=== PATIENT | female | born 1990 | race Caucasian/White ===

== ENCOUNTER 2018-02-17 11:52 | Emergency (ER) | payer OTHER ==
[2018-02-17 12:07] VITALS: BP 144/100; PULSE 80; TEMP 98.1; BMI 45.1
--- NOTE | 2018-02-17 12:19 | PDOC ---
Attending Attestation - Resident Resident Name: Alistair Hagan - ED Attending Attestation I have performed the following: I have examined & evaluated the patient, The case was reviewed & discussed with the resident, I agree w/resident's findings & plan, Exceptions are as noted - HPI HPI: 27 yo F presents with dental pain since yesterday. History of cracked tooth. No fever, no facial swelling. +L facial pain. - Physicial Exam PE: GENERAL: Awake, alert, and fully oriented, in no acute distress HEAD: No signs of trauma EYES: PERRLA, EOMI, sclera anicteric, conjunctiva clear ENT: Auricles normal inspection, hearing grossly normal, nares patent, oropharynx clear without exudates. Moist mucosa DENTAL: +Dental caries to #17 and 18. No gingival edema. NECK: Normal ROM, supple, no lymphadenopathy, JVD, or masses SKIN: Warm, Dry, normal turgor, no rashes or lesions noted. - Medical Decision Making Will do local infiltration of bupivacaine and refer to urgent care dental, to go straight from ED. Both teeth likely need to be extracted. No signs of abscess.
[2018-02-17] MEDS ORDERED: BUPIVACAINE HCL 0.25% 125 MG/50 ML VIAL INF ONE (12:22)
[2018-02-17] MEDS ORDERED: BUPIVACAINE 0.25% /EPI 1:200,000 10 ML VIAL INF ONE (12:25)
[2018-02-17] MEDS ORDERED: BUPIVACAINE HCL/PF 0.5% (5MG/ML) 10 ML VIAL ONE (12:37)
[2018-02-17] MEDS ORDERED: BUPIVACAINE HCL/PF 0.5% (5MG/ML) 10 ML VIAL IJ ONE (12:45)
--- NOTE | 2018-02-17 12:55 | PDOC ---
History of Present Illness - General History Source: Patient Exam Limitations: No Limitations - History of Present Illness Initial Comments: 02/17/18 12:51 Patient is a 27F here today complaining of a toothache located in her posterior left two molars that started yesterday night. Denies trauma, fevers, chills, vomiting. Endorses nausea associated with the pain. Has tried motrin for pain. Denies neck pain, chest pain, shortness of breath. <Alistair Hagan - Last Filed: 02/17/18 12:50> <Treasure Rodriguez - Last Filed: 02/17/18 13:45> - General Chief Complaint: Toothache Stated Complaint: TOOTHACHE Time Seen by Provider: 02/17/18 12:09 Past History - Past Medical History COPD: No Other medical history: MIGRAINE - Suicide/Smoking/Psychosocial Hx Smoking History: Never smoked Hx Alcohol Use: No Drug/Substance Use Hx: No Substance Use Type: None <Alistair Hagan - Last Filed: 02/17/18 12:50> <Treasure Rodriguez - Last Filed: 02/17/18 13:45> - Past Medical History Allergies/Adverse Reactions: Allergies Allergy/AdvReac Type Severity Reaction Status Date / Time No Known Allergies Allergy Verified 02/17/18 11:54 Home Medications: Ambulatory Orders Ibuprofen [Motrin -] 600 mg PO ONCE 02/17/18 Oxycodone HCl/Acetaminophen [Percocet 5-325 mg Tablet] 1 tab PO Q6H PRN #12 tablet MDD 4 tabs 02/17/18 Review of Systems - Review of Systems Comments:: 02/17/18 12:51 GENERAL/CONSTITUTIONAL: No fever or chills. No weakness. HEAD, EYES, EARS, NOSE AND THROAT: No change in vision. No sore throat. + toothache CARDIOVASCULAR: No chest pain or shortness of breath RESPIRATORY: No cough, wheezing, or hemoptysis. GASTROINTESTINAL: No nausea, vomiting, diarrhea or constipation. GENITOURINARY: No dysuria, frequency, or change in urination. MUSCULOSKELETAL: No joint or muscle swelling or pain. No neck or back pain. SKIN: No rash NEUROLOGIC: No headache, vertigo, loss of consciousness, or change in strength/ sensation. ENDOCRINE: No increased thirst. No abnormal weight change HEMATOLOGIC/LYMPHATIC: No anemia, easy bleeding, or history of blood clots. ALLERGIC/IMMUNOLOGIC: No hives or skin allergy. <BentleyAlistair - Last Filed: 02/17/18 12:50> *Physical Exam - Vital Signs Last Vital Signs Temp Pulse Resp BP Pulse Ox 98.1 F 80 16 144/100 100 02/17/18 11:53 02/17/18 11:53 02/17/18 11:53 02/17/18 11:53 02/17/18 11:53 - Physical Exam Comments: 02/17/18 12:52 GENERAL: Awake, alert, and fully oriented, in no acute distress DENTAL: Large defect in tooth 18, tender tooth 17/18. No floor involvement, no abscess HEAD: No signs of trauma, normocephalic, atraumatic EYES: PERRLA, EOMI, sclera anicteric, conjunctiva clear ENT: Auricles normal inspection, hearing grossly normal, nares patent, oropharynx clear without exudates. Moist mucosa NECK: Normal ROM, supple, no lymphadenopathy, JVD, or masses LUNGS: No distress, speaks full sentences, clear to auscultation bilaterally HEART: Regular rate and rhythm, normal S1 and S2, no murmurs, rubs or gallops, peripheral pulses normal and equal bilaterally. ABDOMEN: Soft, nontender, normoactive bowel sounds. No guarding, no rebound. No masses EXTREMITIES: Normal inspection, Normal range of motion, no edema. No clubbing or cyanosis. NEUROLOGICAL: Cranial nerves II through XII grossly intact. Normal speech, normal gait, no focal sensorimotor deficits SKIN: Warm, Dry, normal turgor, no rashes or lesions noted. <Alistair Hagan - Last Filed: 02/17/18 12:50> - Vital Signs Last Vital Signs Temp Pulse Resp BP Pulse Ox 98.1 F 80 16 144/100 100 02/17/18 11:53 02/17/18 11:53 02/17/18 11:53 02/17/18 11:53 02/17/18 11:53 <Treasure Rodriguez - Last Filed: 02/17/18 13:45> ED Treatment Course - Medications Given in the ED: ED Medications Discontinued Medications Generic Name Dose Route Start Last Admin Trade Name Freq PRN Reason Stop Dose Admin Bupivacaine HCl 0 mg 02/17/18 12:45 02/17/18 12:45 Marcaine 0.5% - IJ 02/17/18 12:46 25 mg ONCE ONE Administration <Treasure Rodriguez - Last Filed: 02/17/18 13:45> Medical Decision Making - Medical Decision Making 02/17/18 12:53 Patient is 27F with toothache. Large defect seen on exam. No suspicion of large infectino or stevenson's angina. Given a block with bupivicaine and instructed to follow up with dental urgent care clinic. <Alistair Hagan - Last Filed: 02/17/18 12:50> - Medical Decision Making 02/17/18 13:45 Pt returned to ED, as the dental urgent care does not accept her insurance. She states she will be able to see her own dentist tomorrow. I will give rx for percocet for breakthrough pain once the block wears off. <Treasure Rodriguez - Last Filed: 02/17/18 13:45> *DC/Admit/Observation/Transfer - Discharge Dispostion Decision to Admit order: No <Alistair Hagan - Last Filed: 02/17/18 12:50> <Treasure Rodriguez - Last Filed: 02/17/18 13:45> Diagnosis at time of Disposition: Pain due to dental caries - Discharge Dispostion Disposition: HOME Condition at time of disposition: Good - Prescriptions Prescriptions: Oxycodone HCl/Acetaminophen [Percocet 5-325 mg Tablet] 1 tab PO Q6H PRN #12 tablet MDD 4 tabs PRN Reason: Severe Pain - Patient Instructions Printed Discharge Instructions: DI for Tooth Decay, DI for Dental Pain Additional Instructions: Please follow up with an urgent care dental clinic. Please return if you have any new, worsening or concerning symptoms.
== END 2018-02-17 13:00 | disposition home or self-care (01) ==
LOC: FER 11:52
PROC: 3E033NZ Introduction of Analgesics, Hypnotics, Sedatives into Peripheral Vein, Percutaneous Approach (ICD-10-PCS; principal; 2018-02-17)
DX: K08.89 Other specified disorders of teeth and supporting structures (principal)
CPT/HCPCS: 99282-25

== ENCOUNTER 2020-03-06 19:12 | Emergency (ER) | payer OTHER ==
--- NOTE | 2020-03-06 19:26 | PDOC ---
History of Present Illness - General Chief Complaint: Pain, Acute Stated Complaint: ABDOMINAL PAIN Time Seen by Provider: 03/06/20 19:26 History Source: Patient Exam Limitations: No Limitations - History of Present Illness Initial Comments: 03/06/20 19:55 29F with PMH of gastric sleeve presents to the ED with epigastric pain radiating to the back. The pain started 30 min prior to arrival. She reports intermittent episodes of abdominal pain lasting 30-60min, usually occurs after eating. She states that the first episode occurred after the gastric sleeve surgery about 1.5 years ago. She reports associated nausea, vomiting, and diarrhea. Reports diffuse chest pain. Denies fever, SOB, dysuria, abnormal vaginal bleeding or discharge, or hematochezia. PMH: as in HPI SH: as in HPI Meds: none Allergies: NKDA Tob/Etoh/Rec drugs: negx3 PCP: Dr. Allyson OLIVAS GENERAL/CONSTITUTIONAL: No fever or chills. No weakness. HEENT: No change in vision. No ear pain or discharge. CARDIOVASCULAR: +chest pain. No shortness of breath RESPIRATORY: No cough, wheezing, or hemoptysis. GASTROINTESTINAL: +nausea, vomiting, diarrhea GENITOURINARY: No dysuria, frequency, or change in urination. MUSCULOSKELETAL: No joint or muscle swelling or pain. No neck or back pain. SKIN: No rash NEUROLOGIC: No headache, vertigo, loss of consciousness, or change in strength/sensation. ENDOCRINE: No increased thirst. No abnormal weight change HEMATOLOGIC/LYMPHATIC: No anemia, easy bleeding, or history of blood clots. ALLERGIC/IMMUNOLOGIC: No hives or skin allergy. PE GENERAL: Awake, alert, and fully oriented; moderate distress HEAD: No signs of trauma, normocephalic, atraumatic EYES: PERRLA, EOMI, sclera anicteric, conjunctiva clear ENT: Auricles normal inspection, hearing grossly normal, nares patent, oropharynx clear without exudates. Moist mucosa NECK: Normal ROM, supple, no LAD, JVD, or masses HEART: Regular rate and rhythm, normal S1 and S2, no murmurs, rubs or gallops, peripheral pulses normal and equal bilaterally. LUNGS: No respiratory distress, speaks full sentences, clear to auscultation bilaterally ABDOMEN: Soft, epigastric tenderness, normoactive bowel sounds. No guarding. No masses. +Ramires. -CVA tenderness. EXTREMITIES: Normal inspection, Normal range of motion, no edema. No clubbing or cyanosis. NEUROLOGICAL: CNII-XII grossly intact. Normal speech, normal gait, no focal sensorimotor deficits SKIN: Warm, Dry, normal turgor, no rashes. no jaundice. Assessment and Plan 1. Symptomatic cholelithiasis 2. Acute calculous cholecystitis 3. Pancreatitis 4. Gallstone pancreatitis 5. PUD 6. gastric sleeve complication Sebastien Wilson, PGY1 Emergency Medicine Past History - Medical History Allergies/Adverse Reactions: Allergies Allergy/AdvReac Type Severity Reaction Status Date / Time No Known Allergies Allergy Verified 02/17/18 11:54 Home Medications: Ambulatory Orders Ibuprofen [Motrin -] 600 mg PO ONCE 02/17/18 Oxycodone HCl/Acetaminophen [Percocet 5-325 mg Tablet] 1 tab PO Q6H PRN #12 ta blet MDD 4 tabs 02/17/18 COPD: No - Psycho-Social/Smoking History Smoking History: Never smoked ED Treatment Course - LABORATORY CBC & Chemistry Diagram: 03/06/20 20:55 03/06/20 20:55 - RADIOLOGY Radiology Studies Ordered: Abdomen and pelvis CT with IV and PO contrast Radiograph Interpretation: ABDOMINAL AND PELVIS CT WITH IV/PO CONTRAST FINDINGS: Trace bilateral pleural effusions slightly larger on the left side with overlying atelectasis There is a small hiatal hernia. Postsurgical changes of gastric sleeve surgery Area of focal fat infiltration in the left lobe of the liver along the fissure for the falciform ligament. 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 Contrast has not progressed to the colon. Tiny appendicolith within an otherwise normal appendix Shotty subcentimeter mesenteric lymph nodes in the mid abdomen and right lower quadrant, nonspecific, possibly reactive. Not pathologically enlarged by size criteria Small cyst in the left ovary measuring 1.7 cm. The pelvic organs are otherwise grossly normal No intra-abdominal free air, free fluid or loculated collections One or more of the following dose reduction techniques were used: automated exposure control, adjustment of the mA and/or kV according to patient size, use of iterative reconstructive technique. THIS DOCUMENT HAS BEEN ELECTRONICALLY SIGNED Carl Grijalva MD 03/07/2020 01:01 EST Medical Decision Making - Medical Decision Making 03/06/20 20:17 29F with PMH of gastric sleeve presents to the ED with epigastric pain radiating to the back. The pain started 30min prior to arrival. She reports intermittent episodes of abdominal pain lasting 30-60min, typically after eating. She states that the first episode occurred some time after the gastric sleeve surgery about 1.5 years ago. +nausea, vomiting, diarrhea. -ramires sign+ -CBC, CMP, lipase, UA, Upreg, abdomen/pelvis CT with PO and IV contrast -zofran + morphine + 1L LR -mild improvement to pain -> IM toradol -pepcid DDx: 1. Symptomatic cholelithiasis 2. Acute calculous cholecystitis 3. Pancreatitis 4. Gallstone pancreatitis 5. PUD Labs remarkable for: -leukocytosis @ 11.7 -CMP: mildly elevated AST, otherwise wnl -Lipase wnl -UA positive for 1200 bacteria --> no dysuria or other UTI sx, it's likey asymptomatic bacteruria and not a UTI -Upreg negative Abdominal CT: - small hiatal hernia 2/2 gastric sleeve, no evidence of hepatobiliary or pancreatic pathology -pts condition unlikely biliary disease, could be secondary to gastric sleeve, advised to follow up with the surgeon Dr. Contreras -Patient able to tolerate fluids via PO challenge Discharge - Discharge Information Problems reviewed: Yes Clinical Impression/Diagnosis: Abdominal pain Qualifiers: Abdominal location: right upper quadrant Qualified Code(s): R10.11 - Right upper quadrant pain Condition: Stable Disposition: HOME - Admission No - Follow up/Referral Referrals: Td Contreras MD [Non Staff, Medical] - - Patient Discharge Instructions Patient Printed Discharge Instructions: DI for Abdominal Pain-Adult, DI for Gastroesophageal Reflux Disease (GERD) Additional Instructions: You were seen in the ED for complaints of abdominal pain. In the ED you were evaluated with blood work, urinalysis, and abdominal CT scan. Your results were normal. There does not appear to be an acute need for immediate hospitalization. You are advised to follow up with your surgeon Dr. Contreras and your PMD Dr. Allyson Tariq within 1 week. Return to the ED immediately if you experience vomiting and inability to tolerate drinking fluids or vomiting blood. - Post Discharge Activity
[2020-03-06 19:40] VITALS: TEMP 98.6; BMI 27.1
[2020-03-06] MEDS ORDERED: ONDANSETRON 4 MG/2 ML VIAL IVPUSH ONE (19:45)
[2020-03-06] MEDS ORDERED: morphine CARPU-JECT 4 MG/1 ML DISP.SYRIN IVPUSH ONE ×2 (19:46→20:37)
[2020-03-06] MEDS ORDERED: LACTATED RINGERS SOLUTION 1000 ML INFUS.BAG IV ONE (19:47)
[2020-03-06] MEDS ORDERED: morphine SULFATE 4 MG/ML VIAL ONE (20:39)
--- NOTE | 2020-03-06 21:11 | PDOC ---
Documentation entered by Ina Leiva SCRIBE, acting as scribe for Megan Hernandez MD. Megan Hernandez MD: This documentation has been prepared by the Abbie richard Sydney, SCRIBE, under my direction and personally reviewed by me in its entirety. I confirm that the documentation accurately reflects all work, treatment, procedures, and medical decision making performed by me. Attending Attestation - Resident Resident Name: Sebastien Wilson - ED Attending Attestation I have performed the following: I have examined & evaluated the patient, The case was reviewed & discussed with the resident, I agree w/resident's findings & plan, Exceptions are as noted - HPI HPI: 03/06/20 20:25 Patient is a 29 year old female with a significant past medical history of covid-19 (positive in October), gastric sleeve who presents to the ED with epigastric pain around 6:30pm tonight. As per patient, her pain radiates to her back and is similar to her usual intermittent episodes of epigastric pain which usually last 30-60 minutes in duration and occur after eating. Patient reports her first episode occurred after her gastric sleeve surgery roughly 1.5 years ago. She endorses associated nausea, vomiting and diarrhea. Denies headache, fever, chills, shortness of breath, chest pain, or urinary changes. Allergies: NKDA - Physicial Exam PE: 03/06/20 21:08 General: uncomfortable appearing HEENT: NCAT Neck: supple, FROM Abdomen: soft, nt, no rebound, no guarding, no appreciable masses - Medical Decision Making 03/06/20 21:09 29 yo F with epigastric abd pain, abdomen non-tender but patietn uncomfortable appearing on exam, possible gastritis vs. pancreatitis vs. lower suspicion for biliary disease or obstruction however given report of h/o gastric sleeve will get CT a/p. Plan: -labs -urine -pain control as needed -zofran -CT a/p -reassess This clinical encounter is taking place during a federal and state health care emergency attributable to the novel Samuel Virus pandemic. The [employer] of the Department of Health and Human Services has declared, pursuant to the Public Health Service Act 319F-3 (42 U.S[place]C. 247d-6d), that a covered persons activities related to medical countermeasures against COVID-19 will be immune from liability under Federal and State law. 03/07/20 03:45 CT without concerning findings. Patient with improvement in pain. Will d/c with return precautions, recommend PMD f/u and patient return to f/u with her bariatric surgeon as symptoms have been ongoing since her surgery. Discharge - Discharge Information Problems reviewed: Yes Clinical Impression/Diagnosis: Abdominal pain Qualifiers: Abdominal location: right upper quadrant Qualified Code(s): R10.11 - Right upper quadrant pain Condition: Stable Disposition: HOME - Follow up/Referral Referrals: Td Contreras MD [Non Staff, Medical] - - Patient Discharge Instructions Patient Printed Discharge Instructions: DI for Gastroesophageal Reflux Disease (GERD), DI for Abdominal Pain-Adult Additional Instructions: You were seen in the ED for complaints of abdominal pain. In the ED you were evaluated with blood work, urinalysis, and abdominal CT scan. Your results were normal. There does not appear to be an acute need for immediate hospitalization. You are advised to follow up with your surgeon Dr. Contreras and your PMD Dr. Allyson Tariq within 1 week. Return to the ED immediately if you experience vomiting and inability to tolerate drinking fluids or vomiting blood. - Post Discharge Activity
[2020-03-06 21:27] LABS: BASO % 0.4 % (0-2.0); EOS % 0.7 % (0-4.5); HEMATOCRIT 37.8 % (32.4-45.2); HEMOGLOBIN 12.3 GM/dL (10.7-15.3); LYMPH % 19.6 % (8-40); MCH 26.7 pg (25.7-33.7); MCHC 32.5 g/dl (32.0-36.0); MEAN PLT VOLUME 8.8 fl (7.5-11.1); MONO % 7.3 % (3.8-10.2); PLATELET COUNT 362 K/MM3 (134-434); RBC 4.61 M/mm3 (3.60-5.2); RDW 15.7 % (11.6-15.6); WHITE BLOOD COUNT 11.7 K/mm3 (4.0-10.0)
[2020-03-06 21:44] LABS: BILIRUBIN,TOTAL 0.3 mg/dL (0.2-1); BLOOD UREA NITROGEN 13.4 mg/dL (7-18); CALCIUM 8.5 mg/dL (8.5-10.1); CREATININE 0.6 mg/dL (0.55-1.3); POTASSIUM 3.3 mmol/L (3.5-5.1); TOT PROT 6.8 g/dl (6.4-8.2)
[2020-03-06] MEDS ORDERED: KETOROLAC TROMETHAMINE 60 MG/2 ML VIAL IM ONE (22:02)
[2020-03-06] MEDS ORDERED: KETOROLAC TROMETHAMINE 60 MG/2 ML VIAL IVPUSH ONE (22:08)
[2020-03-06] MEDS ORDERED: KETOROLAC TROMETHAMINE 30 MG/1 ML VIAL ONE (22:09)
[2020-03-06 23:16] LABS: HCG,QUALITATIVE URINE Negative
[2020-03-06 23:26] LABS: URINE APPEARANCE CLEAR; URINE BILIRUBIN NEGATIVE (NEGATIVE); URINE COLOR DK YELLOW; URINE GLUCOSE (UA) NEGATIVE (NEGATIVE); URINE KETONE TRACE (NEGATIVE); URINE LEUK ESTERASE NEGATIVE (NEGATIVE); URINE NITRITE NEGATIVE (NEGATIVE); URINE PROTEIN TRACE (NEGATIVE)
[2020-03-06 23:38] LABS: EPI CELLS 28 /uL (0-25.1); HYALINE CASTS 3 /uL (0-3.1); URINE BACTERIA 1209 /uL (0-1359); URINE RBC 17 /uL (0-23.9); URINE WBC 15 /uL (0-25.8)
[2020-03-07] MEDS ORDERED: ACETAMINOPHEN 500 MG TABLET (FP) PO ONE (01:18)
[2020-03-07] MEDS ORDERED: FAMOTIDINE 20 MG TABLET PO ONE (01:28)
[2020-03-07 02:06] VITALS: BP 108/78; PULSE 78
== END 2020-03-07 02:06 | disposition home or self-care (01) ==
LOC: JER 19:12
PROC: 3E033NZ Introduction of Analgesics, Hypnotics, Sedatives into Peripheral Vein, Percutaneous Approach (ICD-10-PCS; principal; 2020-03-06)
PROC: 3E033GC Introduction of Other Therapeutic Substance into Peripheral Vein, Percutaneous Approach (ICD-10-PCS; 2020-03-06)
PROC: 3E0233Z Introduction of Anti-inflammatory into Muscle, Percutaneous Approach (ICD-10-PCS; 2020-03-06)
DX: R10.11 Right upper quadrant pain (principal)
CPT/HCPCS: 36415; 74177-TC; 80053; 81003; 83690; 84703; 85025; 87086; 96372; 96374; 96375; 96376; 99285-25; Q9967

== ENCOUNTER 2020-03-15 05:13 | Inpatient (IN) | payer OTHER ==
[2020-03-15] MEDS ORDERED: FAMOTIDINE 20 MG/50 ML IVPB 20 MG/50 ML MG IVPB ONE ×2 (05:56→06:11)
[2020-03-15] MEDS ORDERED: LACTATED RINGERS SOLUTION 1,000 ML IV STA (05:56)
[2020-03-15] MEDS ORDERED: ONDANSETRON 4 MG/2 ML VIAL IVPUSH ONE ×2 (05:56→20:40)
[2020-03-15] MEDS ORDERED: ACETAMINOPHEN 1000 MG/100 ML VIAL (NON FORMULARY) IVPB ONE (05:56)
[2020-03-15] MEDS ORDERED: ACETAMINOPHEN INJECTION 100 ML IVPB ONE (06:11)
--- NOTE | 2020-03-15 06:15 | PDOC ---
Rapid Medical Evaluation Chief Complaint: Pain Time Seen by Provider: 03/15/20 06:15 Medical Evaluation: Shraddha is a 29 yo F w a hx of a gastric sleeve who presents with epigastric burning abdominal pain which radiates directly to her back. Pain woke her up from sleep at 2:30 am. She tried taking tylenol with minimal relief last night. Does not remember what she ate last night for dinner. Surgeon: Td Contreras LMP: 1 month prior Vital Signs Temp Pulse Resp BP Pulse Ox 98.6 F 62 18 123/76 99 03/15/20 05:44 03/15/20 05:44 03/15/20 05:44 03/15/20 05:44 03/15/20 05:44 PE: Gen: Patient looks uncomfortable, feels warm. Sick but not toxic. Abd: Epigastric abdominal pain. Soft abdomen. Not peritoneal, no rigidity, no rebound or guarding. Plan: Labs, urine, EKG, GI cocktail, analgesia, anti-emetic, IV hydration, day team re-assess - day team to assess for whether she needs a CTAP to r/o pancreatitis or a RUQ US to r/o constance - 20 gauge IV placed in right AC in case need for CTAP w/ contrast EKG: Sinus bradycardia rate of 55, pr 122, narrow complexes, qrs 80, normal axis, no hypertrophy, no ST elevations or depressions, normal T waves, no Q waves, QTc 403 Discharge Disposition - Diagnosis Abdominal pain Qualifiers: Abdominal location: epigastric Qualified Code(s): R10.13 - Epigastric pain - Discharge Dispostion Condition at time of disposition: Stable - Referrals Referrals: Nishant Chow MD [Primary Care Provider] - - Patient Instructions - Post Discharge Activity
[2020-03-15 07:00] LABS: ALBUMIN 2.8 g/dl (3.4-5.0); ALK PHOS 97 U/L (45-117); ANION GAP 5 MMOL/L (8-16); BLOOD UREA NITROGEN 14.4 mg/dL (7-18); CALCIUM 7.6 mg/dL (8.5-10.1); CHLORIDE 108 mmol/L (98-107); CO2 29 mmol/L (21-32); CREATININE 0.6 mg/dL (0.55-1.3); GLUCOSE,RANDOM 90 mg/dL (74-106); LIPASE 197 U/L (73-393); MAGNESIUM 2.2 mg/dL (1.8-2.4); PHOSPHOROUS 3.4 mg/dL (2.5-4.9); POTASSIUM 3.5 mmol/L (3.5-5.1); SGOT/AST 750 U/L (15-37); SGPT/ALT 297 U/L (13-61); SODIUM 142 mmol/L (136-145)
[2020-03-15 07:03] LABS: BASO % 0.5 % (0-2.0); EOS % 1.3 % (0-4.5); HEMATOCRIT 33.4 % (32.4-45.2); HEMOGLOBIN 10.9 GM/dL (10.7-15.3); LYMPH % 29.7 % (8-40); MCH 26.8 pg (25.7-33.7); MCHC 32.5 g/dl (32.0-36.0); MEAN CELL VOLUME 82.5 fl (80-96); MEAN PLT VOLUME 8.8 fl (7.5-11.1); MONO % 10.5 % (3.8-10.2); PLATELET COUNT 266 K/MM3 (134-434); RBC 4.05 M/mm3 (3.60-5.2); RDW 16.9 % (11.6-15.6); WHITE BLOOD COUNT 6.4 K/mm3 (4.0-10.0)
[2020-03-15 07:06] LABS: INR 0.97 (0.83-1.09); PROTHROMBIN TIME (PATIENT) 11.4 SEC (9.7-13.0)
[2020-03-15 07:08] LABS: ACTIVATED PTT 29.1 SECONDS (25.2-36.5)
--- NOTE | 2020-03-15 07:29 | PDOC ---
History of Present Illness - General Chief Complaint: Pain Stated Complaint: ABDOMINAL PAIN Time Seen by Provider: 03/15/20 06:15 - History of Present Illness Initial Comments: 03/15/20 07:29 HPI 29 y/o F hx of gastric sleeve (1yr ago) presents to the ED with epigastric pain which began this morning around 2 a.m. Pain woke her up from sleep. Pain is in the epigastrium and radiates to her back. She endoreses nausea but denies any vomiting, diarrrhea, dysuria, hematuria,bloody stools. PMHx: as noted above ROS: as noted Allergies: NKDA ROS: GENERAL/CONSTITUTIONAL: No fever or chills. No weakness. HEAD, EYES, EARS, NOSE AND THROAT: No change in vision. No ear pain or discharge. No sore throat. CARDIOVASCULAR: No chest pain or shortness of breath RESPIRATORY: No cough, wheezing, or hemoptysis. GASTROINTESTINAL: No nausea, vomiting, diarrhea or constipation. GENITOURINARY: No dysuria, frequency, or change in urination. MUSCULOSKELETAL: No joint or muscle swelling or pain. No neck or back pain. SKIN: No rash NEUROLOGIC: No headache, vertigo, loss of consciousness, or change in strength/sensation. ENDOCRINE: No increased thirst. No abnormal weight change HEMATOLOGIC/LYMPHATIC: No anemia, easy bleeding, or history of blood clots. ALLERGIC/IMMUNOLOGIC: No hives or skin allergy. PE: GENERAL: Awake, alert, and fully oriented, in no acute distress HEAD: No signs of trauma, normocephalic, atraumatic EYES: PERRLA, EOMI, sclera anicteric, conjunctiva clear ENT: Auricles normal inspection, hearing grossly normal, nares patent, oropharynx clear without exudates. Moist mucosa NECK: Normal ROM, supple, no lymphadenopathy, JVD, or masses LUNGS: No distress, speaks full sentences, clear to auscultation bilaterally HEART: Regular rate and rhythm, normal S1 and S2, no murmurs, rubs or gallops, peripheral pulses normal and equal bilaterally. ABDOMEN: Soft, ttp (ruq + epigastric), No guarding, no rebound. No masses EXTREMITIES : Normal inspection, Normal range of motion, no edema. No clubbing or cyanosis NEUROLOGICAL: Cranial nerves II through XII grossly intact. Normal speech, normal gait, no focal sensorimotor deficits SKIN: Warm, Dry, normal turgor, no rashes or lesions noted MDM DDx including but not limited to: cholecystitis, cholelithiasis, pancreatitis, acs Workup: Labs, urine, EKG, GI cocktail, analgesia, anti-emetic, IV hydration, TX: Scores - HEART score - EKG: EKG: Sinus bradycardia rate of 55, pr 122, narrow complexes, qrs 80, normal axis, no hypertrophy, no ST elevations or depressions, normal T waves, no Q waves, QTc 403 ED course labs remarkable for elevated LFT's, lipase unremarkable will obtain RUQ u/s ultrasound Impression fatty infiltration of the liver cholelithiasis small amount of pericholecystic fluid this could represent early sign of acute cholecystitis ct abdomen and pelvis -new abnormal findings of the gallbladder suggestive of acute cholecystitis myomatous uterous, more apparent than noted on prior study meds: Dr. Foley consulted: admit, IV fluids, abx,npo Reassesment: pain poorly controlled with tylenol, given IV morphien Past History - Medical History Allergies/Adverse Reactions: Allergies Allergy/AdvReac Type Severity Reaction Status Date / Time No Known Allergies Allergy Verified 03/15/20 05:47 Home Medications: Ambulatory Orders NK [No Known Home Medication] 03/15/20 COPD: No - Reproductive History Is Patient Now?: No - Psycho-Social/Smoking History Smoking History: Never smoked Information on smoking cessation initiated: No - Substance Abuse Hx (Audit-C & DAST Scrn) How often the patient has a drink containing alcohol: Never Score: In Men: 4 or > Positive; In Women: 3 or > Positive: 0 Screen Result (Pos requires Nsg. Audit-10AR): Negative In the last yr the pt used illegal drug/Rx for NonMed reason: No Score: Yes response is considered Positive: 0 Screen Result (Positive result requires Nsg. DAST-10): Negative *Physical Exam - Vital Signs Last Vital Signs Temp Pulse Resp BP Pulse Ox 98.6 F 62 18 123/76 99 03/15/20 05:44 03/15/20 05:44 03/15/20 05:44 03/15/20 05:44 03/15/20 05:44 ED Treatment Course - LABORATORY CBC & Chemistry Diagram: 03/15/20 05:56 03/15/20 06:10 - ADDITIONAL ORDERS Additional order review: Laboratory Results 03/15/20 03/15/20 03/15/20 06:10 06:10 06:10 PT with INR 11.40 INR 0.97 PTT (Actin FS) 29.1 Sodium 142 Potassium 3.5 Chloride 108 H Carbon Dioxide 29 Anion Gap 5 L BUN 14.4 Creatinine 0.6 Est GFR (CKD-EPI)AfAm 141.76 Est GFR (CKD-EPI)NonAf 122.31 Random Glucose 90 Lactic Acid 1.3 Calcium 7.6 L Phosphorus 3.4 Magnesium 2.2 Total Bilirubin 1.0 AST 750 H ALT 297 H Alkaline Phosphatase 97 Creatine Kinase 64 Troponin I < 0.02 Total Protein 6.0 L Albumin 2.8 L Lipase 197 Serum , Qual 03/15/20 06:10 PT with INR INR PTT (Actin FS) Sodium Potassium Chloride Carbon Dioxide Anion Gap BUN Creatinine Est GFR (CKD-EPI)AfAm Est GFR (CKD-EPI)NonAf Random Glucose Lactic Acid Calcium Phosphorus Magnesium Total Bilirubin AST ALT Alkaline Phosphatase Creatine Kinase Troponin I Total Protein Albumin Lipase Serum , Qual Negative 03/15/20 05:56 RBC 4.05 MCV 82.5 MCHC 32.5 RDW 16.9 H MPV 8.8 Neutrophils % 58.0 Lymphocytes % 29.7 D Monocytes % 10.5 H Eosinophils % 1.3 D Basophils % 0.5 - RADIOLOGY Radiology Studies Ordered: Category Date Time Status ABDOMEN US -LIMITED [US] Stat Ultrasound 03/15/20 07:14 Ordered - Medications Given in the ED: ED Medications Discontinued Medications Generic Name Dose Route Start Last Admin Trade Name Tru PRN Reason Stop Dose Admin Acetaminophen 1,000 mg 03/15/20 05:56 03/15/20 06:19 Ofirmev Injection - IVPB 03/15/20 05:57 1,000 mg ONCE ONE Administration Famotidine/Sodium Chloride 20 mg in 50 mls @ 100 mls/hr 03/15/20 05:56 06:19 Pepcid 20 Mg Premixed Ivpb - IVPB 03/15/20 06:25 100 mls/hr ONCE ONE Administration Lactated Ringer's 1,000 mls @ 1,000 mls/hr 03/15/20 05:56 03/15/20 06:19 Lactated Ringers Solution IV 03/15/20 06:55 1,000 mls/hr ONCE STA Administration Ondansetron HCl 4 mg 03/15/20 05:56 03/15/20 06:19 Zofran Injection IVPUSH 03/15/20 05:57 4 mg ONCE ONE Administration Discharge - Discharge Information Clinical Impression/Diagnosis: Cholecystitis Abdominal pain Qualifiers: Abdominal location: epigastric Qualified Code(s): R10.13 - Epigastric pain Condition: Stable - Follow up/Referral - Patient Discharge Instructions - Post Discharge Activity
[2020-03-15] MEDS ORDERED: SODIUM CHLORIDE 0.9% 500 ML INFUS.BAG IV ONE (08:35)
[2020-03-15] MEDS ORDERED: CEFTRIAXONE 1,000 MG in DEXTROSE 5%-WATER - 50 ML IVPB ONE (08:35)
[2020-03-15] MEDS ORDERED: morphine CARPU-JECT 4 MG/1 ML DISP.SYRIN IVPUSH ONE (09:05)
[2020-03-15] MEDS ORDERED: morphine SULFATE 4 MG/ML VIAL ONE (09:48)
[2020-03-15] MEDS ORDERED: CEFTRIAXONE 1 GM/50 ML BAG ONE (09:48)
--- NOTE | 2020-03-15 10:38 | PDOC ---
Documentation entered by Tong Andrade SCRIBE, acting as scribe for Imani Briggs MD. Imani Briggs MD: This documentation has been prepared by the zhenge, Tong Andrade SCRIBE, under my direction and personally reviewed by me in its entirety. I confirm that the documentation accurately reflects all work, treatment, procedures, and medical decision making performed by me. Attending Attestation - Resident Resident Name: ClarimarioTomyCharbel - ED Attending Attestation I have performed the following: I have examined & evaluated the patient, The case was reviewed & discussed with the resident, I agree w/resident's findings & plan, Exceptions are as noted - HPI HPI: 03/15/20 09:41 The patient is a 29 year old female with a significant past medical history of gastric bypass Surgery ([facility], 1 year ago; lost 150 pounds) who presents to the emergency department for evaluation of epigastric pain radiating to the back that began 7 hours ago when she was woken up by her pain. The patient described her pain as sharp and severe associated with nausea and chills. She reports a history of diarrhea two weeks ago that has resolved, and intermittent upper abdominal pain with eating for the past few months. The patient denies chest/back pain, cough, and shortness of breath. Denies fever, vomiting. Denies any symptoms. Denies any other symptoms. Allergies: NKDA Social Hx: None reported Surgical Hx: gastric bypass (1 year ago) PCP: Dr. Chow 03/15/20 10:20 - Physicial Exam PE: 03/15/20 10:22 Awake alert no acute distress lungs are clear bilaterally heart is regular murmurs rubs or gallops abdomen is soft there is epigastric and right upper quadrant tenderness no rebound no guarding no CVA tenderness no lower abdominal tenderness. Extremities are warm and perfused skin is warm and dry no edema lower extremities patient is awake alert oriented x3 - Medical Decision Making 03/15/20 10:36 Of gastric sleeve 1 year ago aspect if worse sick last a.m. around 3 chills. On exam epigastric region. Differential included complication secondary to pain versus cholecystitis cholelithiasis pancreatitis. Basic labs were ordered as well as an ultrasound echocardiogram the abdomen pelvis evaluate gastric sleeve. Ultrasound shows multiple gallstones with concerning for cholecystitis Dr. Foley surgery ceftriaxone and Flagyl will be admitted discussed with Dr. Crowell to admit the patient been made n.p.o. for her surgery Discharge - Discharge Information Problems reviewed: Yes Clinical Impression/Diagnosis: Cholecystitis Abdominal pain Qualifiers: Abdominal location: epigastric Qualified Code(s): R10.13 - Epigastric pain Condition: Stable - Admission Yes - Follow up/Referral Referrals: Nishant Chow MD [Primary Care Provider] - - Patient Discharge Instructions - Post Discharge Activity
--- NOTE | 2020-03-15 11:03 | HP ---
Admitting History and Physical - Admission History of Present Illness: 29 y/o F hx of gastric sleeve (1yr ago) presents to the ED with epigastric pain which began this morning around 2 a.m. Pain woke her up from sleep. Pain is in the epigastrium and radiates to her back. She endoreses nausea but denies any vomiting, diarrrhea, dysuria, hematuria,bloody stools. - Past Medical History ...LMP: 03/15/20 ...: No - Smoking History Smoking history: Never smoked - Alcohol/Substance Use Hx Alcohol Use: No Home Medications - Allergies Allergies/Adverse Reactions: Allergies Allergy/AdvReac Type Severity Reaction Status Date / Time No Known Allergies Allergy Verified 03/15/20 05:47 - Home Medications Home Medications: Ambulatory Orders NK [No Known Home Medication] 03/15/20 Physical Examination Vital Signs: Vital Signs Temperature 98.6 F 03/15/20 05:44 Pulse Rate 72 03/15/20 10:47 Respiratory Rate 18 03/15/20 10:47 Blood Pressure 105/72 03/15/20 10:47 O2 Sat by Pulse Oximetry (%) 99 03/15/20 10:47 Labs: CBC, BMP 03/15/20 05:56 03/15/20 06:10 Problem List - Problems (1) Abdominal pain Assessment/Plan: ultrasound Impression fatty infiltration of the liver cholelithiasis small amount of pericholecystic fluid this could represent early sign of acute cholecystitis ct abdomen and pelvis -new abnormal findings of the gallbladder suggestive of acute cholecystitis myomatous uterous, more apparent than noted on prior study Surgical consult npo ivf iv abx Code(s): R10.9 - UNSPECIFIED ABDOMINAL PAIN Qualifiers: Abdominal location: epigastric Qualified Code(s): R10.13 - Epigastric pain (2) Cholecystitis Assessment/Plan: as above Code(s): K81.9 - CHOLECYSTITIS, UNSPECIFIED (3) History of sleeve gastrectomy Code(s): Z90.3 - ACQUIRED ABSENCE OF STOMACH [PART OF] (4) Transaminitis Assessment/Plan: follow trends gi consult Code(s): R74.0 - NONSPEC ELEV OF LEVELS OF TRANSAMNS & LACTIC ACID DEHYDRGNSE
--- NOTE | 2020-03-15 15:32 | CONSULT ---
- Consultation REQUESTING PROVIDER: Charbel Fall MD CONSULT REQUEST: We have been asked to surgically evaluate this patient for symptomatic gallbladder disease. Hospitalist:Gamaliel Torres HISTORY OF PRESENT ILLNESS: KAILEY who is a is a 29 y/o female who prese nts with epigastric burning abdominal pain which radiates directly to her back. Pain woke her up from sleep at 2:30 am. Does not remember what she ate last night for dinner. She may have had this before; she was txed and released from the ED 03/06/20-03/07/2020 after a minimal w/u and she was told she had GERD; she is unaware if she had gallstones at the time she was being evaluated for the gastric sleeve. She has no other F GI//[employer] c/o; she has lost over 100 lbs. to date. PMHx: none PSHx: lap sleeve gastrectomy 12/[address] [facility] [address] Td Contreras Home Medications Medication Instructions Recorded NK [No Known Home Medication] 03/15/20 Allergies Allergy/AdvReac Type Severity Reaction Status Date / Time No Known Allergies Allergy Verified 03/15/20 05:47 REVIEW OF SYSTEMS: CONSTITUTIONAL: Absent: fever, chills, diaphoresis, generalized weakness, malaise, loss of appetite, weight change CARDIOVASCULAR: Absent: chest pain, syncope, palpitations, irregular heart rate, lightheadedness, peripheral edema RESPIRATORY: Absent: cough, shortness of breath, dyspnea with exertion, wheezing, stridor, hemoptysis GASTROINTESTINAL: Present: abdominal pain, abdominal distension, nausea, vomiting, Absent: diarrhea, constipation, melena, hematochezia GENITOURINARY: Absent: dysuria, frequency, urgency, hesitancy, hematuria, flank pain, genital pain MUSCULOSKELETAL: Absent: myalgia, arthralgia, joint swelling, back pain, neck pain SKIN: Absent: rash, itching, pallor HEMATOLOGIC/IMMUNOLOGIC: Absent: easy bleeding, easy bruising, lymphadenopathy NEUROLOGIC: Absent: headache, focal weakness, paresthesias, dizziness, unsteady gait, seizure, mental status changes, bladder or bowel incontinence PSYCHIATRIC: Absent: anxiety, depression, suicidal or homicidal ideation, hallucinations. PHYSICAL EXAM: GENERAL: Awake, alert, and fully oriented, in no acute distress. HEAD: Normal with no signs of trauma. EYES: sclera anicteric, conjunctiva clear. NECK: Normal ROM, supple without lymphadenopathy, JVD, or masses. LUNGS: Clear to auscultation bilat anteriorly. No wheezes, and no crackles. No accessory muscle use. HEART: Regular rate and rhythm. No murmurs ABDOMEN: Soft, tender RUQ, not distended, normoactive bowel sounds, no guarding, no rebound, no masses. No organomegaly. No hernias; marked laxity of the skin of the abdominal wall. MUSCULOSKELETAL: Normal ROM at all joints. No bony deformities or tenderness. No CVA tenderness. UPPER EXTREMITIES: 2+ pulses, warm, well-perfused. No cyanosis. Cap refill <2 seconds. No peripheral edema. LOWER EXTREMITIES: 2+ pulses, warm, well-perfused. No calf tenderness. No peripheral edema. NEUROLOGICAL: Normal speech, gait not observed. PSYCH: Cooperative. Good eye contact. Appropriate mood and affect. SKIN: Warm, dry, normal turgor, no rashes or lesions noted. Vital Signs Temperature 98.6 F 03/15/20 05:44 Pulse Rate 72 03/15/20 10:47 Respiratory Rate 18 03/15/20 10:47 Blood Pressure 105/72 03/15/20 10:47 O2 Sat by Pulse Oximetry (%) 99 03/15/20 10:47 Lab Results WBC 6.4 K/mm3 (4.0-10.0) 03/15/20 05:56 RBC 4.05 M/mm3 (3.60-5.2) 03/15/20 05:56 Hgb 10.9 GM/dL (10.7-15.3) 03/15/20 05:56 Hct 33.4 % (32.4-45.2) 03/15/20 05:56 MCV 82.5 fl (80-96) 03/15/20 05:56 MCHC 32.5 g/dl (32.0-36.0) 03/15/20 05:56 RDW 16.9 % (11.6-15.6) H 03/15/20 05:56 Plt Count 266 K/MM3 (134-434) D 03/15/20 05:56 INR 0.97 (0.83-1.09) 03/15/20 06:10 Sodium 142 mmol/L (136-145) 03/15/20 06:10 Potassium 3.5 mmol/L (3.5-5.1) 03/15/20 06:10 Chloride 108 mmol/L (98-107) H 03/15/20 06:10 Carbon Dioxide 29 mmol/L (21-32) 03/15/20 06:10 Anion Gap 5 MMOL/L (8-16) L 03/15/20 06:10 BUN 14.4 mg/dL (7-18) 03/15/20 06:10 Creatinine 0.6 mg/dL (0.55-1.3) 03/15/20 06:10 Random Glucose 90 mg/dL (74-106) 03/15/20 06:10 Calcium 7.6 mg/dL (8.5-10.1) L 03/15/20 06:10 Blood Type A POSITIVE 03/15/20 06:10 Antibody Screen Negative 03/15/20 06:10 Imaging w/u to date reviewed IMP: biliary colic/possible acute cholecystitis/cholelithiasis PLAN: NPO/IVF/IVABS; trend LFT's/suggest lap constance possible open on this admission pending ongoing w/u; a/a/u by the patient h/e she may not be amenable to surgery; will f/u. Dillon Foley MD FAC S
[2020-03-15 17:28] LABS: URINE APPEARANCE CLOUDY; URINE COLOR DK YELLOW
[2020-03-15 17:29] LABS: PH,URINE 8.5 (5.0-8.0); URINE BILIRUBIN NEGATIVE (NEGATIVE); URINE GLUCOSE (UA) NEGATIVE (NEGATIVE); URINE KETONE NEGATIVE (NEGATIVE); URINE LEUK ESTERASE NEGATIVE (NEGATIVE); URINE NITRITE NEGATIVE (NEGATIVE); URINE PROTEIN TRACE (NEGATIVE)
[2020-03-15 17:30] LABS: EPI CELLS 216.4 /uL (0-25.1); URINE WBC 44.8 /uL (0-25.8)
[2020-03-15 17:31] LABS: HYALINE CASTS 16.76 /uL (0-3.1); URINE BACTERIA 667.17 /uL (0-1359)
[2020-03-15] MEDS ORDERED: MORPHINE SULFATE 2 MG/ML VIAL IVPUSH ONE (20:40)
[2020-03-15] MEDS ORDERED: MORPHINE SULFATE 2 MG/ML VIAL ONE (20:53)
--- NOTE | 2020-03-15 21:21 | EKG ---
Test Reason : Blood Pressure : / mmHG Vent. Rate : 055 BPM Atrial Rate : 055 BPM P-R Int : 122 ms QRS Dur : 080 ms QT Int : 422 ms P-R-T Axes : 081 083 062 degrees QTc Int : 403 ms SINUS BRADYCARDIA OTHERWISE NORMAL ECG NO PREVIOUS ECGS AVAILABLE Confirmed by VALERIE CASTRO MD ([id number]) on 03/15/2020 9:21:24 PM Referred By: Confirmed By:VALERIE CASTRO MD
[2020-03-16] MEDS: D5-1/2NS+20 MEQ KCL - 20 MEQ/1,000 ML INFUS.BAG IV SCH ×2 (08:18→19:09)
[2020-03-16] MEDS ORDERED: CEFTRIAXONE 2 GM/100 ML BAG IVPB ONE (08:25)
[2020-03-16] MEDS: CEFTRIAXONE 2 GM/100 ML BAG IVPB SCH (09:26)
--- NOTE | 2020-03-16 09:43 | PN ---
Progress Note, Physician Chief Complaint: Cholecyctitis Abdominal pain History of Present Illness: 29 year old, came in to [facility] ER for abdominal pain, nausea/vomiting ER evaluation + cholecystitis 2/2 acute weight loss after lap sleeve gastrectomy - Current Medication List Current Medications: Active Medications Ceftriaxone Sodium (Rocephin 2gm Ivpb (Pre-Docked)) 2 gm in 100 mls @ 200 mls/hr IVPB DAILY KIERA; Protocol Last Admin: 03/16/20 09:26 Dose: 200 mls/hr Documented by: Metronidazole (Flagyl 500mg Premixed Ivpb -) 500 mg in 100 mls @ 100 mls/hr IVPB Q8H-IV KIERA Last Admin: 03/16/20 09:00 Dose: 100 mls/hr Documented by: Potassium Chloride/Dextrose/Sod Cl (D5-1/2ns+20 Meq Kcl -) 20 meq in 1,000 mls @ 125 mls/hr IV ASDIR KIERA Last Admin: 03/16/20 08:18 Dose: 125 mls/hr Documented by: - Objective Vital Signs: Vital Signs Temperature 98.2 F 03/16/20 09:27 Pulse Rate 62 03/16/20 09:27 Respiratory Rate 17 03/16/20 09:27 Blood Pressure 113/67 03/16/20 09:27 O2 Sat by Pulse Oximetry (%) 99 03/16/20 09:27 Constitutional: Yes: Well Nourished, No Distress, Calm Cardiovascular: Yes: Regular Rate and Rhythm Respiratory: Yes: Regular, CTA Bilaterally Gastrointestinal: Yes: Normal Bowel Sounds, Soft, Tenderness (RUQ) Genitourinary: Yes: WNL Musculoskeletal: Yes: WNL Extremities: Yes: WNL Edema: No Peripheral Pulses WNL: Yes Neurological: Yes: Alert, Oriented Psychiatric: Yes: Alert, Oriented Labs: CBC, BMP 03/15/20 05:56 03/15/20 06:10 INR, PTT INR 0.97 (0.83-1.09) 03/15/20 06:10 Problem List - Problems (1) Abdominal pain Assessment/Plan: -Surgical consult -CTAP reviewed -Morphine 4 mg Q4H PRN for pain 7-10 Problems reviewed: Yes Code(s): R10.9 - UNSPECIFIED ABDOMINAL PAIN Qualifiers: Abdominal location: epigastric Qualified Code(s): R10.13 - Epigastric pain (2) Cholecystitis Assessment/Plan: -Surgical consult -CTAP reviewed -Morphine 4 mg Q4H PRN for pain 7-10 -NPO -IVF Problems reviewed: Yes Code(s): K81.9 - CHOLECYSTITIS, UNSPECIFIED (3) History of sleeve gastrectomy Assessment/Plan: -Done by Dr Td Contreras MD at [facility] Problems reviewed: Yes Code(s): Z90.3 - ACQUIRED ABSENCE OF STOMACH [PART OF] (4) Transaminitis Assessment/Plan: -LFT's trending down -monitor trend Problems reviewed: Yes Code(s): R74.0 - NONSPEC ELEV OF LEVELS OF TRANSAMNS & LACTIC ACID DEHYDRGNSE (5) Migraine Assessment/Plan: -Acetaminphen 1 g Q6H PRN -Imitrex 25 mg po once Problems reviewed: Yes Code(s): G43.909 - MIGRAINE, UNSP, NOT INTRACTABLE, WITHOUT STATUS MIGRAINOSUS Assessment/Plan See problem list
--- NOTE | 2020-03-16 09:47 | CON.GI ---
Consult Consult Specialty:: GI Referred by:: Hospitalist service Reason for Consultation:: Abdominal pain - History of Present Illness Chief Complaint: Abdominal Pain History of Present Illness: 29F admitted for evaluation of upper/RUQ pain. She states that pain started at 2AM. She had a similar episode last week lasting for hours, came to the ER and was advised that it was either from an umbilical hernia or a hiatal hernia.AST was elevated at that time to 99. CT scan revealed mural enhancement of the gallbladder wall and pericholecystic fluid. Abdominal US revealed gallstones, fatty liver and pericholecystic fluid. Abdominal pain persists. + nausea with vomiting last night. No change in bowel habiys. No alcohol use. No IVDA/DA. No recent travel - History Source History Provided By: Patient, Medical Record Limitations to Obtaining History: No Limitations - Past Medical History Pulmonary: Yes: Asthma Hepatobiliary: Yes: Cholelithiasis ...LMP: 03/15/20 ...: No - Past Surgical History Additional Surgical History: Gastric sleeve surgery - Alcohol/Substance Use Hx Alcohol Use: No History of Substance Use: reports: None - Smoking History Smoking history: Never smoked - Social History Usual Living Arrangement: Other (Domestic partner) Occupation: Unemployed Place of : [facility] History of Recent Travel: No Home Medications - Allergies Allergies/Adverse Reactions: Allergies Allergy/AdvReac Type Severity Reaction Status Date / Time No Known Allergies Allergy Verified 03/15/20 05:47 - Home Medications Home Medications: Ambulatory Orders NK [No Known Home Medication] 03/15/20 Family Medical History Other Family History: Mother: Alive: DM II. Father: : "natural causes". 5 sisters / 2 brothers: Healthy. 3 sons 2 daughters: Some with asthma. No family history of colorectal cancer, other GI malignancy, liver disease Review of Systems - Review of Systems Constitutional: denies: Chills, Fever Cardiovascular: denies: Chest Pain Respiratory: denies: Cough, SOB Gastrointestinal: reports: Abdominal Pain, Nausea, Vomiting. denies: Rectal B leeding, Vomiting Blood Physical Exam-GI Vital Signs: Vital Signs during my exam at 0900 T: 98.6 P: 59 R: 16 BP: 101/61 O2: 97% RA Temperature 98.2 F 03/16/20 09:27 Pulse Rate 62 03/16/20 09:27 Respiratory Rate 17 03/16/20 09:27 Blood Pressure 113/67 03/16/20 09:27 O2 Sat by Pulse Oximetry (%) 99 03/16/20 09:27 Constitutional: Yes: Calm Eyes: No: Sclera Icterus Cardiovascular: Yes: Bradycardia (regular rhythm). No: Murmur Respiratory: Yes: CTA Bilaterally Gastrointestinal Inspection: No: Distention ...Auscultate: Yes: Normoactive Bowel Sounds ...Palpate: Yes: Soft. No: Hepatomegaly, Splenomegaly, Tenderness ...Percussion: No: Tympanitic Edema: No (No LE edema) Neurological: Yes: Alert Labs: CBC, BMP 03/15/20 05:56 03/15/20 06:10 INR, PTT INR 0.97 (0.83-1.09) 03/15/20 06:10 Hepatic Panel Total Bilirubin 1.0 mg/dL (0.2-1) 03/15/20 06:10 AST 750 U/L (15-37) H 03/15/20 06:10 ALT 297 U/L (13-61) H 03/15/20 06:10 Alkaline Phosphatase 97 U/L (45-117) 03/15/20 06:10 Albumin 2.8 g/dl (3.4-5.0) L 03/15/20 06:10 Imaging - Results Cat Scan: Report Reviewed, Image Reviewed Ultrasound: Report Reviewed Problem List - Problems (1) Cholecystitis Assessment/Plan: Suspect acute calculous cholecystitis: advise: NPO IV Hydration Surgical consult IV Abx: On flagyl and ceftriaxone for now (ID consulted) Avoid hepatotoxic agents Screening hepatitis A/B/C serologies Code(s): K81.9 - CHOLECYSTITIS, UNSPECIFIED
--- NOTE | 2020-03-16 09:55 | PN ---
Progress Note (short form) - Note Progress Note: Surgery: PT with improved nausea. No having any emesis. Still having some upper abd pain. Vital Signs Period Temp Pulse Resp BP Sys/Kaur Pulse Ox Last 24 Hr 98.0 F-98.3 F 53-72 17-19 105-122/45-78 99-100 GEN: A&0x3 ABD: soft, non-distended, mild epigastri/RUQ tenderness. CBC, BMP 03/15/20 05:56 03/15/20 06:10 US: cholelithiasis, No CBD dilatation A/P: 29 yo female with cholellithiasis, h/o gastric sleeve-1 year ago D/w Dr. Foley, will continue npo/IV hydration and Iv abx Plan for possible surgery tomorrow Repeat labs ordered for today cbc/bmp and Hepatic liver panel <Sola Damon - Last Filed: 03/16/20 09:56> - Note Progress Note: Attending Surgeon: I personally saw and examined the patient. My examination reveals a patient with symptomatic biliary colic. I discussed the case with the surgical PA and agree with their findings and plan of care with any exceptions as noted. ~ Dillon Foley MD, FACS <Dillon Foley - Last Filed: 03/30/20 08:27>
[2020-03-16 10:54] LABS: BASO % 0.5 % (0-2.0); EOS % 0.7 % (0-4.5); HEMATOCRIT 36.1 % (32.4-45.2); HEMOGLOBIN 11.7 GM/dL (10.7-15.3); LYMPH % 33.2 % (8-40); MCH 27.1 pg (25.7-33.7); MCHC 32.5 g/dl (32.0-36.0); MEAN CELL VOLUME 83.2 fl (80-96); MEAN PLT VOLUME 9.5 fl (7.5-11.1); MONO % 4.8 % (3.8-10.2); NEUT % 60.8 % (42.8-82.8); PLATELET COUNT 279 K/MM3 (134-434); RBC 4.34 M/mm3 (3.60-5.2); RDW 16.8 % (11.6-15.6); WHITE BLOOD COUNT 6.1 K/mm3 (4.0-10.0)
[2020-03-16] MEDS ORDERED: ACETAMINOPHEN 1000 MG/100 ML VIAL (NON FORMULARY) IVPB ONE (10:59)
[2020-03-16] MEDS ORDERED: ACETAMINOPHEN INJECTION 100 ML IVPB ONE (11:00)
[2020-03-16 11:19] LABS: ALBUMIN 2.8 g/dl (3.4-5.0); BILIRUBIN,DIRECT 0.3 mg/dL (0.0-0.2); BILIRUBIN,TOTAL 0.7 mg/dL (0.2-1); BLOOD UREA NITROGEN 10.8 mg/dL (7-18); CALCIUM 8.3 mg/dL (8.5-10.1); CREATININE 0.6 mg/dL (0.55-1.3); POTASSIUM 4.2 mmol/L (3.5-5.1); TOT PROT 6.4 g/dl (6.4-8.2)
[2020-03-16] MEDS ORDERED: SUMAtriptan SUCCINATE 25 MG TABLET PO ONE (13:11)
[2020-03-16] MEDS ORDERED: ACETAMINOPHEN 1000 MG/100 ML VIAL (NON FORMULARY) IVPB PRN ×2 (13:11→13:24)
[2020-03-16] MEDS ORDERED: morphine CARPU-JECT 4 MG/1 ML DISP.SYRIN IVPUSH PRN (13:19)
[2020-03-16] MEDS ORDERED: SUMAtriptan SUCCINATE 50 MG TABLET ONE (13:26)
--- NOTE | 2020-03-16 17:13 | PN ---
Progress Note (short form) - Note Progress Note: ID CONSULT DICTATED ACUTE CHOLECYSTITIS R/O SEPSIS SECONDARY TO BILIARY TRACT SOURCE OBTAIN BC EMPIRIC CEFTRIAXONE/ FLAGYL
[2020-03-16] MEDS ORDERED: PNEUMOC 13-VAL CONJ-DIP CRM/PF 0.5 ML DISP.SYRIN IM ONE (19:32)
[2020-03-16] MEDS ORDERED: PNEUMOCOCCAL 23 VACCINE 0.5 ML VIAL IM ONE (20:00)
[2020-03-16] MEDS: morphine SULFATE 4 MG/ML VIAL IVPUSH PRN (21:55)
--- NOTE | 2020-03-16 22:25 | CONS ---
DATE OF CONSULTATION: DATE OF DICTATION: 03/16/2020 INFECTIOUS DISEASE CONSULTATION HISTORY OF PRESENT ILLNESS: The patient is a 29-year-old female who is evaluated for acute cholecystitis. The patient was admitted to the hospital on March 15, 2020, with epigastric abdominal pain. She awoke from sleep at 2:30 in the morning with epigastric pain radiating to her back. She presented to the emergency room where an ultrasound showed cholelithiasis and pericholecystic fluid. She was also noted to have elevated liver enzymes. She was empirically treated with ceftriaxone and Flagyl for acute cholecystitis. She was seen in consultation by surgery and is scheduled for a cholecystectomy. At the present time, she is awake and alert. She has no complaints of pain. She has received analgesics. PAST MEDICAL HISTORY: Positive for gastric sleeve in 2019. ALLERGIES: No known allergies. LABORATORY DATA: White count 6.4, hematocrit 33.4, platelets 266, differential 58 neutrophils, 29 lymphocytes, 10 monocytes. Chest x-ray negative. Liver enzymes, total bilirubin 1.0, alkaline phosphatase 97, AST 750, ALT 297. Urinalysis 44 white cells. Urine culture negative. PHYSICAL EXAMINATION: General: On physical examination, she is awake and alert. She is supine in bed. She is in no acute distress. Vital signs: Temperature 98.2, blood pressure 113/67, pulse 62 regular, respirations 17 per minute. HEENT: Sclerae anicteric. Cardiovascular: Heart sounds S1, S2. Lungs: Clear. Abdomen: Soft. There is right upper quadrant tenderness to palpation and epigastric tenderness to palpation. There is positive Ramires sign. Extremities: Negative for edema. IMPRESSION: 1. Acute cholecystitis. 2. Rule out sepsis secondary to biliary tract source. Obtain blood cultures. Continue empiric antibiotic coverage, biliary tract pathogens with ceftriaxone, Flagyl. Surgical followup. Thank you for the kind referral. LESLIE GONZALEZ M.D. [id number]
[2020-03-17] MEDS: morphine SULFATE 4 MG/ML VIAL IVPUSH PRN ×2 (04:09→12:25)
[2020-03-17] MEDS: D5-1/2NS+20 MEQ KCL - 20 MEQ/1,000 ML INFUS.BAG IV SCH ×3 (04:55→18:00)
--- NOTE | 2020-03-17 06:12 | PN.GI ---
GI Progress Note Subjective: NO NEW COMPLAINTS FOR CHOLECYSTECTOMY TODAY - Objective Vital Signs: Vital Signs Temperature 98.2 F 03/17/20 02:00 Pulse Rate 48 L 03/17/20 02:00 Respiratory Rate 18 03/17/20 02:00 Blood Pressure 97/58 L 03/17/20 02:00 O2 Sat by Pulse Oximetry (%) 99 03/17/20 02:00 Constitutional: Well Nourished, No Distress Eyes: Yes: WNL Neck: Yes: WNL Cardiovascular: Yes: WNL Respiratory: Yes: WNL, Regular ...Auscultate: Yes: Other (RUQ TENDERNESS NO REBOUND OR GUARDING) Labs: CBC, BMP 03/16/20 09:55 03/16/20 09:55 INR, PTT INR 0.97 (0.83-1.09) 03/15/20 06:10 Problem List - Problems (1) Abdominal pain Assessment/Plan: NPO / IVF'S CONTINUE ANTIBIOTICS MONITOR LFT - MAY NEED MRCP IF THEY DO NOT NORMALIZE AFTER CHOLECYSTECTOMY Code(s): R10.9 - UNSPECIFIED ABDOMINAL PAIN Qualifiers: Abdominal location: epigastric Qualified Code(s): R10.13 - Epigastric pain (2) Cholecystitis Code(s): K81.9 - CHOLECYSTITIS, UNSPECIFIED (3) History of sleeve gastrectomy Code(s): Z90.3 - ACQUIRED ABSENCE OF STOMACH [PART OF] (4) Transaminitis Code(s): R74.0 - NONSPEC ELEV OF LEVELS OF TRANSAMNS & LACTIC ACID DEHYDRGNSE
--- NOTE | 2020-03-17 08:02 | PN ---
Progress Note, Physician - Current Medication List Current Medications: Active Medications Acetaminophen (Ofirmev Injection -) 1,000 mg IVPB Q6H PRN PRN Reason: PAIN Stop: 03/17/20 13:11 Last Admin: 03/16/20 20:27 Dose: 1,000 mg Documented by: Ceftriaxone Sodium (Rocephin 2gm Ivpb (Pre-Docked)) 2 gm in 100 mls @ 200 mls/hr IVPB DAILY KIERA; Protocol Last Admin: 03/16/20 09:26 Dose: 200 mls/hr Documented by: Metronidazole (Flagyl 500mg Premixed Ivpb -) 500 mg in 100 mls @ 100 mls/hr IVPB Q8H-IV KIERA Last Admin: 03/17/20 01:16 Dose: 100 mls/hr Documented by: Potassium Chloride/Dextrose/Sod Cl (D5-1/2ns+20 Meq Kcl -) 20 meq in 1,000 mls @ 125 mls/hr IV ASDIR KIERA Last Admin: 03/17/20 04:55 Dose: 125 mls/hr Documented by: Morphine Sulfate (Morphine Sulfate) 4 mg IVPUSH Q4H PRN PRN Reason: PAIN LEVEL 6-10 Last Admin: 03/17/20 04:09 Dose: 4 mg Documented by: - Objective Vital Signs: Vital Signs Temperature 98.1 F 03/17/20 06:00 Pulse Rate 50 L 03/17/20 06:00 Respiratory Rate 18 03/17/20 06:00 Blood Pressure 110/63 03/17/20 06:00 O2 Sat by Pulse Oximetry (%) 99 03/17/20 06:00 Cardiovascular: Yes: Regular Rate and Rhythm Respiratory: Yes: Regular, CTA Bilaterally Gastrointestinal: Yes: Normal Bowel Sounds, Soft, Tenderness (mild ruq) Labs: CBC, BMP 03/16/20 09:55 03/16/20 09:55 INR, PTT INR 0.97 (0.83-1.09) 03/15/20 06:10 Problem List - Problems (1) Abdominal pain Code(s): R10.9 - UNSPECIFIED ABDOMINAL PAIN Qualifiers: Abdominal location: epigastric Qualified Code(s): R10.13 - Epigastric pain (2) Cholecystitis Code(s): K81.9 - CHOLECYSTITIS, UNSPECIFIED (3) History of sleeve gastrectomy Code(s): Z90.3 - ACQUIRED ABSENCE OF STOMACH [PART OF] (4) Transaminitis Code(s): R74.0 - NONSPEC ELEV OF LEVELS OF TRANSAMNS & LACTIC ACID DEHYDRGNSE Assessment/Plan - Problems (1) Abdominal pain Assessment/Plan: -Surgical consult noted -CTAP reviewed -Morphine 4 mg Q4H PRN for pain 7-10 Problems reviewed: Yes Code(s): R10.9 - UNSPECIFIED ABDOMINAL PAIN Qualifiers: Abdominal location: epigastric Qualified Code(s): R10.13 - Epigastric pain (2) Cholecystitis Assessment/Plan: -Surgical consult -CTAP reviewed -Morphine 4 mg Q4H PRN for pain 7-10 -NPO -IVF Problems reviewed: Yes Code(s): K81.9 - CHOLECYSTITIS, UNSPECIFIED (3) History of sleeve gastrectomy Assessment/Plan: -Done by Dr Td Contreras MD at [facility] Problems reviewed: Yes Code(s): Z90.3 - ACQUIRED ABSENCE OF STOMACH [PART OF] (4) Transaminitis Assessment/Plan: -LFT's trending down -monitor trend Problems reviewed: Yes Code(s): R74.0 - NONSPEC ELEV OF LEVELS OF TRANSAMNS & LACTIC ACID DEHYDRGNSE (5) Migraine Assessment/Plan: -Acetaminphen 1 g Q6H PRN -Imitrex 25 mg po once Problems reviewed: Yes Code(s): G43.909 - MIGRAINE, UNSP, NOT INTRACTABLE, WITHOUT STATUS MIGRAINOSUS
[2020-03-17 08:42] LABS: EOS % 2.6 % (0-4.5); HEMATOCRIT 38.2 % (32.4-45.2); HEMOGLOBIN 12.4 GM/dL (10.7-15.3); LYMPH % 47.3 % (8-40); MCHC 32.5 g/dl (32.0-36.0); MEAN PLT VOLUME 9.4 fl (7.5-11.1); MONO % 8.1 % (3.8-10.2); PLATELET COUNT 302 K/MM3 (134-434); RDW 17.3 % (11.6-15.6); WHITE BLOOD COUNT 5.4 K/mm3 (4.0-10.0)
[2020-03-17 09:08] LABS: BILIRUBIN,TOTAL 0.6 mg/dL (0.2-1); BLOOD UREA NITROGEN 4.1 mg/dL (7-18); CALCIUM 8.5 mg/dL (8.5-10.1); CREATININE 0.6 mg/dL (0.55-1.3); POTASSIUM 3.5 mmol/L (3.5-5.1); TOT PROT 6.8 g/dl (6.4-8.2)
[2020-03-17] MEDS ORDERED: CEFTRIAXONE 2 GM in DEXTROSE 5%-WATER 100 ML IVPB SCH (12:30)
[2020-03-17] MEDS: CEFTRIAXONE 2 GM/100 ML BAG IVPB SCH (12:34)
[2020-03-17] MEDS ORDERED: DEXTROSE 5%-WATER 100 ML IVPB ONE (13:02)
[2020-03-17] MEDS ORDERED: MIDAZOLAM HCL 2 MG/2 ML SINGLE DOSE VIAL ONE (13:27)
[2020-03-17] MEDS ORDERED: fentaNYL CITRATE 250 MCG/5 ML VIAL ONE (13:27)
[2020-03-17] MEDS ORDERED: ROCURONIUM BROMIDE 50 MG/5 ML SYRINGE ONE (13:28)
[2020-03-17] MEDS ORDERED: DEXAMETHASONE SOD PHOSPHATE 4 MG/1 ML VIAL ONE (14:22)
[2020-03-17] MEDS ORDERED: BUPIVACAINE HCL/PF 0.5% (5 MG/ML) 30 ML VIAL IJ ONE ×2 (14:43)
[2020-03-17] MEDS ORDERED: NEOSTIGMINE METHYLSULFATE 0.5 MG/ML - 10 ML MDV ONE (14:52)
[2020-03-17] MEDS ORDERED: GLYCOPYRROLATE 0.2 MG/1 ML VIAL ONE (14:53)
[2020-03-17] MEDS ORDERED: BUPIVACAINE HCL 50 ML ONE (15:19)
[2020-03-17 16:05] VITALS: BMI 28.2
--- NOTE | 2020-03-17 16:15 | OP ---
Operative Note - Note: Operative Date: 03/17/20 Pre-Operative Diagnosis: Acute cholecystitis Operation: Laparoscopic cholecystectomy Post-Operative Diagnosis: Same as Pre-op Surgeon: Dillon Foley News Reel Cameraman: Alida Johnson Anesthesiologist/CHINCHILLA MACHINE OPERATOR: Kvng Aguirre Anesthesia: General, Local Specimens Removed: gallbladder Estimated Blood Loss (mls): 20 Operative Report Dictated: Yes
--- NOTE | 2020-03-17 16:16 | SURG ---
Surgery Sheet Metal Layout Mechanic Note Sheet Metal Layout Mechanic: Alida Johnson PA-C Date of Service: 03/17/20 Diagnosis: acute cholecystitis Procedure: laparoscopic cholecystectomy I was present for the entirety of the operative procedure. For further detail, please refer to operative report. Visit type - Case Type Case Type: Scheduled - Emergency Emergency Visit: Yes ED Registration Date: 03/15/20 Care time: The patient presented to the Emergency Department on the above date and was hospitalized for further evaluation of their emergent condition. - New patient This patient is new to me today: Yes Date on this admission: 03/17/20
[2020-03-17] MEDS ORDERED: ONDANSETRON 4 MG/2 ML VIAL IVPUSH PRN (16:55)
[2020-03-17] MEDS ORDERED: LACTATED RINGERS SOLUTION 1,000 ML IV SCH (17:00)
[2020-03-17] MEDS ORDERED: PNEUMOCOCCAL 23 VACCINE 0.5 ML VIAL IM ONE (17:26)
[2020-03-17] MEDS: oxyCODONE HCL 5 MG TABLET PO PRN (19:07)
[2020-03-17] MEDS ORDERED: MELATONIN 5 MG TABLETS PO ONE (20:25)
[2020-03-18] MEDS: oxyCODONE HCL 5 MG TABLET PO PRN ×7 (01:09→23:45)
[2020-03-18] MEDS: D5-1/2NS+20 MEQ KCL - 20 MEQ/1,000 ML INFUS.BAG IV SCH ×3 (04:15→21:13)
[2020-03-18] MEDS ORDERED: ZOLPIDEM TARTRATE 5 MG TABLET PO ONE (05:02)
[2020-03-18 08:27] LABS: BASO % 0.3 % (0-2.0); EOS % 0.1 % (0-4.5); HEMOGLOBIN 12.9 GM/dL (10.7-15.3); LYMPH % 18.6 % (8-40); MCH 26.8 pg (25.7-33.7); MCHC 32.3 g/dl (32.0-36.0); MEAN CELL VOLUME 82.9 fl (80-96); MEAN PLT VOLUME 8.8 fl (7.5-11.1); MONO % 8.4 % (3.8-10.2); NEUT % 72.6 % (42.8-82.8); PLATELET COUNT 348 K/MM3 (134-434); RBC 4.82 M/mm3 (3.60-5.2); RDW 17.4 % (11.6-15.6); WHITE BLOOD COUNT 12.3 K/mm3 (4.0-10.0)
--- NOTE | 2020-03-18 08:32 | PN ---
Progress Note, Physician - Current Medication List Current Medications: Active Medications Acetaminophen (Tylenol -) 650 mg PO Q6H PRN PRN Reason: pain 1-3 or fever Ceftriaxone Sodium 2 gm/ (Dextrose) 100 mls @ 100 mls/hr IVPB DAILY KIERA; Protocol Metronidazole (Flagyl 500mg Premixed Ivpb -) 500 mg in 100 mls @ 100 mls/hr IVPB Q8H-IV KIERA Last Admin: 03/18/20 01:09 Dose: 100 mls/hr Documented by: Potassium Chloride/Dextrose/Sod Cl (D5-1/2ns+20 Meq Kcl -) 20 meq in 1,000 mls @ 125 mls/hr IV ASDIR KIERA Last Admin: 03/18/20 04:15 Dose: 125 mls/hr Documented by: Oxycodone HCl (Roxicodone -) 5 mg PO Q4H PRN PRN Reason: PAIN LEVEL 1-5 Last Admin: 03/18/20 03:59 Dose: 5 mg Documented by: Oxycodone HCl (Roxicodone -) 10 mg PO Q4H PRN PRN Reason: PAIN LEVEL 6-10 Last Admin: 03/18/20 01:09 Dose: 10 mg Documented by: - Objective Vital Signs: Vital Signs Temperature 99.1 F 03/18/20 06:00 Pulse Rate 63 03/18/20 06:00 Respiratory Rate 18 03/18/20 06:00 Blood Pressure 119/59 L 03/18/20 06:00 O2 Sat by Pulse Oximetry (%) 95 03/18/20 06:00 Cardiovascular: Yes: Regular Rate and Rhythm Respiratory: Yes: Regular, CTA Bilaterally Gastrointestinal: Yes: Normal Bowel Sounds, Soft, Tenderness Labs: CBC, BMP 03/18/20 07:48 INR, PTT INR 0.97 (0.83-1.09) 03/15/20 06:10 Problem List - Problems (1) Abdominal pain Code(s): R10.9 - UNSPECIFIED ABDOMINAL PAIN Qualifiers: Abdominal location: epigastric Qualified Code(s): R10.13 - Epigastric pain (2) Cholecystitis Code(s): K81.9 - CHOLECYSTITIS, UNSPECIFIED (3) History of sleeve gastrectomy Code(s): Z90.3 - ACQUIRED ABSENCE OF STOMACH [PART OF] (4) Transaminitis Code(s): R74.0 - NONSPEC ELEV OF LEVELS OF TRANSAMNS & LACTIC ACID DEHYDRGNSE Assessment/Plan - Problems (1) Abdominal pain Assessment/Plan: -Surgical consult noted -CTAP reviewed -Morphine 4 mg Q4H PRN for pain 7-10 Problems reviewed: Yes Code(s): R10.9 - UNSPECIFIED ABDOMINAL PAIN Qualifiers: Abdominal location: epigastric Qualified Code(s): R10.13 - Epigastric pain (2) Cholecystitis Assessment/Plan: -Surgical consult Operative Date: 03/17/20 Pre-Operative Diagnosis: Acute cholecystitis Operation: Laparoscopic cholecystectomy Post-Operative Diagnosis: Same as Pre-op Surgeon: Dillon Foley Senior Environmental Engineer: Alida Johnson -CTAP reviewed -Morphine 4 mg Q4H PRN for pain 7-10 -Diet per Surgery -IVF Problems reviewed: Yes Code(s): K81.9 - CHOLECYSTITIS, UNSPECIFIED (3) History of sleeve gastrectomy Assessment/Plan: -Done by Dr Td Contreras MD at [facility] Problems reviewed: Yes Code(s): Z90.3 - ACQUIRED ABSENCE OF STOMACH [PART OF] (4) Transaminitis Assessment/Plan: -LFT's trending down -monitor trend Problems reviewed: Yes Code(s): R74.0 - NONSPEC ELEV OF LEVELS OF TRANSAMNS & LACTIC ACID DEHYDRGNSE (5) Migraine Assessment/Plan: -Acetaminphen 1 g Q6H PRN -Imitrex 25 mg po once Problems reviewed: Yes Code(s): G43.909 - MIGRAINE, UNSP, NOT INTRACTABLE, WITHOUT STATUS MIGRAINOSUS
[2020-03-18 08:45] LABS: BILIRUBIN,TOTAL 0.6 mg/dL (0.2-1); BLOOD UREA NITROGEN 3.1 mg/dL (7-18); CREATININE 0.7 mg/dL (0.55-1.3); POTASSIUM 3.8 mmol/L (3.5-5.1); TOT PROT 7.1 g/dl (6.4-8.2)
--- NOTE | 2020-03-18 11:20 | OP ---
DATE OF OPERATION: 03/17/2020 PREOPERATIVE DIAGNOSIS: Acute cholecystitis and cholelithiasis. POSTOPERATIVE DIAGNOSIS: Acute cholecystitis and cholelithiasis. PROCEDURE: Laparoscopic cholecystectomy. SURGEON: Dillon Foley MD SETTER MACHINE: Alida Johnson PA-C ANESTHESIA: General. OPERATIVE FINDINGS: Acute cholecystitis and cholelithiasis. The rest of the findings were unremarkable except for adhesions from a previous laparoscopic sleeve gastrectomy. DESCRIPTION OF PROCEDURE: The patient was placed on the operating room table in supine position. After the induction of general anesthesia, the patient's abdomen was prepped with ChloraPrep and draped in sterile fashion. Timeout was taken and then pneumoperitoneum established above the umbilicus using a Veress needle. Once 15 mm of intra-abdominal pressure was obtained, a 5-mm port was placed at the umbilicus. Additional lateral 5-mm ports and a subxiphoid 12-mm port were placed and laparoscopy carried out, and the previously noted findings were observed. The gallbladder was placed on cephalad and lateral traction, and dissection was begun at the neck of the gallbladder where the peritoneum was opened medially and laterally using blunt and sharp dissection and electrocautery. Dissection continued in the triangle of Calot where the cystic duct was identified coursing from the neck of the gallbladder distally to the common bile duct. It was dissected proximally and distally for length. Similarly, the artery was similarly identified and dissected. A critical view of safety was taken, and then the cystic duct divided proximally and distally using Endo Varsha after it was clipped twice proximally and distally with large hemoclips. The artery was similarly clipped and divided. Hemostasis was checked for and noted to be good and then the gallbladder was removed from the liver bed in a retrograde fashion using electrocautery. Prior to removal from the edge of the liver, hemostasis was again verified and then the gallbladder removed from the edge of the liver, placed in an Endo Catch, and brought out through the subxiphoid port. Pneumoperitoneum was reestablished, hemostasis verified again, and then the 5-mm lateral and subxiphoid ports were removed under laparoscopic vision without evidence of bleeding from the port sites. The umbilical port was removed and the pneumoperitoneum evacuated. All port sites were infiltrated with 0.5% Marcaine and the skin edges closed with 4-0 Biosyn in a subcuticular and continuous fashion. Steri-Strips and Band-Aid dressings were placed and the procedure terminated at this point and the patient aroused from general anesthesia and transferred to the post anesthesia care unit in stable condition awake and alert. ESTIMATED BLOOD LOSS: 20 mL. REPLACEMENTS: Crystalloid. DRAINS: None. SPECIMENS: Gallbladder and contents to Pathology. I, Dillon Foley, was physically present in the operating room from the time the patient was placed on the operating room table until she was transferred to the post anesthesia care unit in my accompaniment. MD DIVYA An/[id number] MTDD
[2020-03-18] MEDS ORDERED: DEXTROSE 5%-WATER 100 ML IVPB ONE (12:05)
[2020-03-18] MEDS: ACETAMINOPHEN 325 MG TABLET (FP) PO PRN (12:10)
[2020-03-18] MEDS: CEFTRIAXONE 2 GM in DEXTROSE 5%-WATER 100 ML IVPB SCH (13:38)
--- NOTE | 2020-03-18 16:26 | PN ---
Progress Note (short form) - Note Progress Note: POD 1, s/p Laparoscopic cholecystectomy Pt seen and examined. Reports some pain overnight, improved with pain meds. Has been oob to the restroom without issue. Voiding. Tolerating clears. Denies cp/sob, n/v/d. Vital Signs Temp 99.3 F 03/18/20 15:22 Pulse 78 03/18/20 15:22 Resp 18 03/18/20 15:22 BP 120/55 L 03/18/20 15:22 Pulse Ox 96 03/18/20 15:22 Intake & Output 03/17/20 03/18/20 03/18/20 23:59 11:59 23:59 Intake Total 1300 580 Output Total 350 Balance 950 580 Weight 175 lb Intake: IV 1250 D5-1/2NS+20 MEQ KCL - 20 300 meq In 1,000 ml @ 125 mls /hr IV ASDIR KIERA Rx#: [id number] Oral 50 580 Output: Urine 350 Void 350 Other: Voiding Method Toilet Toilet Toilet # Unmeasured Voids Void 1 2 Bowel Movement No No No Height 5 ft 6 in Body Mass Index (BMI) 28.2 CBC, BMP 03/18/20 07:48 03/18/20 07:48 Gen: awake, alert, nad Resp: unlabored on ra Abdo: soft, nd, +ttp at epigastric incision appropriate to status, Dressings c/d/i, no erythema or drainage. +bowel sounds in all 4 quadrants. Ext: scds in place and on A/P: 29 y/o F w/ PMHx gastric sleeve (1yr ago)a/w epigastric pain found to have acute cholecystitis now POD 1, s/p Laparoscopic cholecystectomy. afebrile, vss Labs noted -advance diet as tolerated -oob -pain control -may be d/c'ed later today if above parameters are met pt should f/u with Dr Foley in 1 week d/w attending Dr Foley
--- NOTE | 2020-03-18 18:02 | PN.GI ---
GI Progress Note Subjective: Laying in bed in some distress. Complains of abdominal pain - Objective Vital Signs: Vital Signs Temperature 99.3 F 03/18/20 15:22 Pulse Rate 78 03/18/20 15:22 Respiratory Rate 18 03/18/20 15:22 Blood Pressure 120/55 L 03/18/20 15:22 O2 Sat by Pulse Oximetry (%) 96 03/18/20 15:22 Constitutional: Calm Eyes: No: Sclera Icterus Cardiovascular: Yes: Regular Rate and Rhythm Respiratory: Yes: CTA Bilaterally Gastrointestinal Inspection: Yes: Other (dressed trochar scar, TTP at trochar sites and RUQ). No: Distention ...Auscultate: Yes: Normoactive Bowel Sounds ...Palpate: Yes: Soft. No: Hepatomegaly, Splenomegaly, Tenderness, Other Labs: CBC, BMP 03/18/20 07:48 03/18/20 07:48 INR, PTT INR 0.97 (0.83-1.09) 03/15/20 06:10 Problem List - Problems (1) Cholecystitis Assessment/Plan: POD 1 Pain at trochar sites and RUQ. LFT's improving, however. Monitor LFTS AM labs ordered If worsening LFTs, MRCP to evaluate biliary tract Code(s): K81.9 - CHOLECYSTITIS, UNSPECIFIED
[2020-03-18 20:08] LABS: HEP B CORE AB, TOT Negative (Negative)
[2020-03-19] MEDS: D5-1/2NS+20 MEQ KCL - 20 MEQ/1,000 ML INFUS.BAG IV SCH ×2 (06:02→17:30)
[2020-03-19] MEDS: oxyCODONE HCL 5 MG TABLET PO PRN ×4 (06:03→22:35)
[2020-03-19 08:14] LABS: BASO % 0.6 % (0-2.0); EOS % 1.5 % (0-4.5); HEMOGLOBIN 10.8 GM/dL (10.7-15.3); LYMPH % 40.8 % (8-40); MCHC 33.6 g/dl (32.0-36.0); MEAN CELL VOLUME 83.2 fl (80-96); MEAN PLT VOLUME 9.1 fl (7.5-11.1); MONO % 11.4 % (3.8-10.2); NEUT % 45.7 % (42.8-82.8); PLATELET COUNT 235 K/MM3 (134-434); RBC 3.85 M/mm3 (3.60-5.2); RDW 17.5 % (11.6-15.6); WHITE BLOOD COUNT 6.5 K/mm3 (4.0-10.0)
[2020-03-19 08:21] LABS: ALBUMIN 2.4 g/dl (3.4-5.0); BILIRUBIN,DIRECT 0.2 mg/dL (0.0-0.2); BILIRUBIN,TOTAL 0.3 mg/dL (0.2-1); TOT PROT 5.4 g/dl (6.4-8.2)
--- NOTE | 2020-03-19 08:49 | PN ---
Progress Note, Physician - Current Medication List Current Medications: Active Medications Acetaminophen (Tylenol -) 650 mg PO Q6H PRN PRN Reason: pain 1-3 or fever Last Admin: 03/18/20 12:10 Dose: 650 mg Documented by: Ceftriaxone Sodium 2 gm/ (Dextrose) 100 mls @ 100 mls/hr IVPB DAILY KIERA; Protocol Last Admin: 03/18/20 13:38 Dose: 100 mls/hr Documented by: Metronidazole (Flagyl 500mg Premixed Ivpb -) 500 mg in 100 mls @ 100 mls/hr IVPB Q8H-IV KIERA Last Admin: 03/19/20 02:26 Dose: 100 mls/hr Documented by: Potassium Chloride/Dextrose/Sod Cl (D5-1/2ns+20 Meq Kcl -) 20 meq in 1,000 mls @ 125 mls/hr IV ASDIR KIERA Last Admin: 03/19/20 06:02 Dose: 125 mls/hr Documented by: Oxycodone HCl (Roxicodone -) 5 mg PO Q4H PRN PRN Reason: PAIN LEVEL 1-5 Last Admin: 03/18/20 17:11 Dose: 5 mg Documented by: Oxycodone HCl (Roxicodone -) 10 mg PO Q4H PRN PRN Reason: PAIN LEVEL 6-10 Last Admin: 03/19/20 06:03 Dose: 10 mg Documented by: - Objective Vital Signs: Vital Signs Temperature 98.1 F 03/19/20 06:00 Pulse Rate 61 03/19/20 06:00 Respiratory Rate 18 03/19/20 06:00 Blood Pressure 114/65 03/19/20 06:00 O2 Sat by Pulse Oximetry (%) 98 03/19/20 06:00 Cardiovascular: Yes: Regular Rate and Rhythm Respiratory: Yes: Regular, CTA Bilaterally Gastrointestinal: Yes: Normal Bowel Sounds, Soft, Tenderness (RUQ) Labs: CBC, BMP 03/19/20 06:45 03/18/20 07:48 INR, PTT INR 0.97 (0.83-1.09) 03/15/20 06:10 Problem List - Problems (1) Abdominal pain Code(s): R10.9 - UNSPECIFIED ABDOMINAL PAIN Qualifiers: Abdominal location: epigastric Qualified Code(s): R10.13 - Epigastric pain (2) Cholecystitis Code(s): K81.9 - CHOLECYSTITIS, UNSPECIFIED (3) History of sleeve gastrectomy Code(s): Z90.3 - ACQUIRED ABSENCE OF STOMACH [PART OF] (4) Transaminitis Code(s): R74.0 - NONSPEC ELEV OF LEVELS OF TRANSAMNS & LACTIC ACID DEHYDRGNSE Assessment/Plan - Problems (1) Abdominal pain Assessment/Plan: -Surgical consult noted -CTAP reviewed -Morphine 4 mg Q4H PRN for pain 7-10 Problems reviewed: Yes Code(s): R10.9 - UNSPECIFIED ABDOMINAL PAIN Qualifiers: Abdominal location: epigastric Qualified Code(s): R10.13 - Epigastric pain (2) Cholecystitis Assessment/Plan: -Surgical consult Operative Date: 03/17/20 Pre-Operative Diagnosis: Acute cholecystitis Operation: Laparoscopic cholecystectomy Post-Operative Diagnosis: Same as Pre-op Surgeon: Dillon Foley News Writer: Alida Johnson -CTAP reviewed -Morphine 4 mg Q4H PRN for pain 7-10 -Diet per Surgery -IVF Problems reviewed: Yes Code(s): K81.9 - CHOLECYSTITIS, UNSPECIFIED (3) History of sleeve gastrectomy Assessment/Plan: -Done by Dr Td Contreras MD at [facility] Problems reviewed: Yes Code(s): Z90.3 - ACQUIRED ABSENCE OF STOMACH [PART OF] (4) Transaminitis Assessment/Plan: -LFT's trending down -monitor trend Laboratory Tests 03/15/20 03/16/20 03/17/20 06:10 09:55 07:37 AST 750 H 244 H 124 H ALT 297 H 298 H 223 H Alkaline Phosphatase 97 131 H 03/18/20 03/19/20 07:48 06:45 AST 83 H 57 H ALT 169 H 104 H Alkaline Phosphatase 120 H 82 Problems reviewed: Yes Code(s): R74.0 - NONSPEC ELEV OF LEVELS OF TRANSAMNS & LACTIC ACID DEHYDRGNSE (5) Migraine Assessment/Plan: -IMPROVED Problems reviewed: Yes Code(s): G43.909 - MIGRAINE, UNSP, NOT INTRACTABLE, WITHOUT STATUS MIGRAINOSUS
[2020-03-19] MEDS ORDERED: DEXTROSE 5%-WATER 100 ML IVPB ONE (09:45)
[2020-03-19] MEDS: CEFTRIAXONE 2 GM in DEXTROSE 5%-WATER 100 ML IVPB SCH (10:08)
--- NOTE | 2020-03-19 18:18 | PN ---
Progress Note (short form) - Note Progress Note: Surgery: Pt without nausea or emesis on diet. OOb and ambulating, voiding on own. Passing flatus Vital Signs Period Temp Pulse Resp BP Sys/Kaur Pulse Ox Last 24 Hr 97.8 F-99.2 F 61-71 18-20 100-117/57-65 97-98 GEN: A&0x3 ABD: soft, non-distended, mild RUQ tenderness. Inc c/d/i CBC, BMP 03/19/20 06:45 03/18/20 07:48 Hepatic Panel Total Bilirubin 0.3 mg/dL (0.2-1) 03/19/20 06:45 Direct Bilirubin 0.2 mg/dL (0.0-0.2) 03/19/20 06:45 AST 57 U/L (15-37) H 03/19/20 06:45 ALT 104 U/L (13-61) H 03/19/20 06:45 Alkaline Phosphatase 82 U/L (45-117) 03/19/20 06:45 Albumin 2.4 g/dl (3.4-5.0) L 03/19/20 06:45 A/P: 29 yo female s/p lap constance, POD#2 pt with improved LFTS, trending down Tolerating a diet. afebrile D/w Dr. Foley, pt stable for discharge. IV fluids discontinued as well as IV antibiotics. Dishcharge a per the medical service
[2020-03-19] MEDS: ACETAMINOPHEN 325 MG TABLET (FP) PO PRN (20:51)
[2020-03-20] MEDS: oxyCODONE HCL 5 MG TABLET PO PRN ×3 (05:07→13:16)
--- NOTE | 2020-03-20 09:06 | PN ---
Progress Note, Physician Chief Complaint: Cholecyctitis Abdominal pain History of Present Illness: 29 year old, came in to [facility] ER for abdominal pain, nausea/vomiting Found to have cholecystitis S/P lap cholecystectomy Currently, NAD c/o incisional pain + flatus OOB independent appetite acceptable - Current Medication List Current Medications: Active Medications Acetaminophen (Tylenol -) 650 mg PO Q6H PRN PRN Reason: pain 1-3 or fever Last Admin: 03/19/20 20:51 Dose: 650 mg Documented by: Oxycodone HCl (Roxicodone -) 5 mg PO Q4H PRN PRN Reason: PAIN LEVEL 1-5 Last Admin: 03/18/20 17:11 Dose: 5 mg Documented by: Oxycodone HCl (Roxicodone -) 10 mg PO Q4H PRN PRN Reason: PAIN LEVEL 6-10 Last Admin: 03/20/20 05:07 Dose: 10 mg Documented by: - Objective Vital Signs: Vital Signs Temperature 98.1 F 03/20/20 06:38 Pulse Rate 61 03/20/20 06:38 Respiratory Rate 03/20/20 06:38 Blood Pressure 108/57 L 03/20/20 06:38 O2 Sat by Pulse Oximetry (%) 97 03/20/20 06:38 Constitutional: Yes: Well Nourished, No Distress, Calm Cardiovascular: Yes: Regular Rate and Rhythm Respiratory: Yes: Regular, CTA Bilaterally Gastrointestinal: Yes: Normal Bowel Sounds, Soft Genitourinary: Yes: WNL Musculoskeletal: Yes: WNL Extremities: Yes: WNL Edema: No Peripheral Pulses WNL: Yes Wound/Incision: Yes: Dressing Dry and Intact Neurological: Yes: Alert, Oriented Psychiatric: Yes: Alert, Oriented Labs: CBC, BMP 03/19/20 06:45 03/18/20 07:48 INR, PTT INR 0.97 (0.83-1.09) 03/15/20 06:10 Problem List - Problems (1) Abdominal pain Assessment/Plan: -Surgical consult appreciated -CTAP acute cholecystitis -S/P Lap Romy -LFT's trending down -Pain management Oxycodone 5 mg 1-2 tabs for again 6-10 Acetaminophen 500 mg 2 tabs Q6H PRN for pain 1-5 -Colace 300 mg po HS to prevent constipation Problems reviewed: Yes Code(s): R10.9 - UNSPECIFIED ABDOMINAL PAIN Qualifiers: Abdominal location: epigastric Qualified Code(s): R10.13 - Epigastric pain (2) Cholecystitis Assessment/Plan: -Surgical consult appreciated -CTAP acute cholecystitis -S/P Lap Romy -LFT's trending down -Pain management Oxycodone 5 mg 1-2 tabs for again 6-10 Acetaminophen 500 mg 2 tabs Q6H PRN for pain 1-5 Problems reviewed: Yes Code(s): K81.9 - CHOLECYSTITIS, UNSPECIFIED (3) History of sleeve gastrectomy Assessment/Plan: -Done by Dr Td Contreras MD at [facility] Problems reviewed: Yes Code(s): Z90.3 - ACQUIRED ABSENCE OF STOMACH [PART OF] (4) Transaminitis Assessment/Plan: -LFT's trending down -monitor trend out patient -If rise in LFT's, would need MRCP, instructed pt to make sure her PCP does draws labs to check her LFT's outpatient Problems reviewed: Yes Code(s): R74.0 - NONSPEC ELEV OF LEVELS OF TRANSAMNS & LACTIC ACID DEHYDRGNSE (5) Migraine Assessment/Plan: -Acetaminphen 1 g Q6H PRN Problems reviewed: Yes Code(s): G43.909 - MIGRAINE, UNSP, NOT INTRACTABLE, WITHOUT STATUS MIGRAINOSUS Assessment/Plan See problem list
[2020-03-20 14:42] VITALS: BP 106/63; PULSE 69; TEMP 98.3
--- NOTE | 2020-03-24 17:48 | PATH ---
Surgical Pathology Report Patient Name: LEXI GERBER Med. Rec. #: [id number] /Age/Gender: 1990 (Age: 29) / F Account: [id number] Location: [facility] MED/SURG Taken: 03/17/2020 Received: 03/18/2020 Reported: 03/24/2020 Physicians: MD Gamaliel Leon M.D. Specimen(s) Received GALLBLADDER Clinical History Cholecystitis Final Diagnosis GALLBLADDER, LAPAROSCOPIC CHOLECYSTECTOMY: CHRONIC CHOLECYSTITIS, CHOLELITHIASIS, AND CHOLESTEROLOSIS. Electronically Signed Zoë Duarte M.D. Gross Description Received in formalin, labeled "gallbladder," is a 7.0 x 2.7 x 2.5 cm. gallbladder with a 0.2 cm. in length portion of cystic duct attached. The outer surface is nesbitt-green with a focal defect and varies from smooth to shaggy. The lumen contains green, tenacious bile as well as abundant yellow, irregular to fragmented choleliths ranging from 0.1-0.5 cm in greatest dimension. The mucosa is dark green and velvety with gold cholesterol stippling. The wall of the gallbladder is focally edematous and averages 0.1 cm. in thickness. Pipe Sm[employer] Operator sections are submitted in one cassette. 03/19/2020 [facility]03/19/2020
== END 2020-03-20 15:08 | disposition home or self-care (01) | DRG 263 ==
LOC: JER 05:13 → JERBED 08:40 → J5S 03-16 17:40 → J8W 03-19 15:16
PROVIDERS: ADMIT Family Medicine; ATTEND Family Medicine
PROC: 0FT44ZZ Resection of Gallbladder, Percutaneous Endoscopic Approach (ICD-10-PCS; principal; 2020-03-17 15:00)
DX: K80.00 Calculus of gallbladder with acute cholecystitis without obstruction (principal); R74.0 Nonspecific elevation of levels of transaminase and lactic acid dehydrogenase [LDH]; J45.909 Unspecified asthma, uncomplicated; G43.909 Migraine, unspecified, not intractable, without status migrainosus; R10.13 Epigastric pain; K76.0 Fatty (change of) liver, not elsewhere classified; Z90.3 Acquired absence of stomach [part of]; Z98.84 Bariatric surgery status
CPT/HCPCS: 36415; 71045-TC-FY; 74177-TC; 76705-TC; 80048; 80053; 80074; 80076; 81003; 82550; 83605; 83690; 83735; 84100; 84484; 84703; 85025; 85610; 85730; 86704; 86706; 86707; 86708; 86709; 86803; 86850; 86900; 86901; 87040; 87086; 87340; 88304-TC; 93005; 93010; 94760; 99285-25; C1887; J0131; Q9967; U0003

== ENCOUNTER 2020-08-11 13:12 | Emergency (ER) | payer OTHER ==
[2020-08-11 13:17] VITALS: BP 108/55; PULSE 77; TEMP 97.9; BMI 30.2
[2020-08-11 14:29] LABS: PH,URINE 5.5 (5.0-8.0); URINE APPEARANCE CLEAR; URINE BILIRUBIN NEGATIVE (NEGATIVE); URINE COLOR YELLOW; URINE GLUCOSE (UA) NEGATIVE (NEGATIVE); URINE KETONE NEGATIVE (NEGATIVE); URINE LEUK ESTERASE NEGATIVE (NEGATIVE); URINE NITRITE NEGATIVE (NEGATIVE); URINE PROTEIN NEGATIVE (NEGATIVE); URINE UROBILINOGEN 0.2 mg/dL (0.2-1.0)
== END 2020-08-11 15:55 | disposition home or self-care (01) ==
LOC: JER 13:12
DX: O20.0 Threatened abortion (principal)
CPT/HCPCS: 36415; 76817-TC; 81003; 84702; 87086; 99284-25

== ENCOUNTER 2021-01-20 19:03 | Emergency (ER) | payer OTHER ==
[2021-01-20 19:12] VITALS: BP 111/62; PULSE 84; TEMP 98.7; BMI 29.0
[2021-01-20] MEDS ORDERED: ACETAMINOPHEN 1000 MG/100 ML VIAL (NON FORMULARY) IVPB ONE (21:18)
[2021-01-20] MEDS ORDERED: SODIUM CHLORIDE 0.9% 1000 ML INFUS.BAG IV ONE (21:18)
[2021-01-20] MEDS ORDERED: ACETAMINOPHEN INJECTION 100 ML IVPB ONE (21:30)
[2021-01-20 21:38] LABS: BASO % 0.6 % (0-2.0); EOS % 3.9 % (0-4.5); HEMATOCRIT 29.5 % (32.4-45.2); HEMOGLOBIN 9.6 GM/dL (10.7-15.3); LYMPH % 25.9 % (8-40); MCH 23.9 pg (25.7-33.7); MCHC 32.4 g/dl (32.0-36.0); MEAN CELL VOLUME 73.8 fl (80-96); MEAN PLT VOLUME 8.6 fl (7.5-11.1); MONO % 8.2 % (3.8-10.2); NEUT % 61.4 % (42.8-82.8); PLATELET COUNT 223 10^3/uL (134-434); RDW 19.5 % (11.6-15.6); WHITE BLOOD COUNT 4.9 K/mm3 (4.0-10.0)
[2021-01-20 21:59] LABS: ALBUMIN 3.2 g/dl (3.4-5.0); BLOOD UREA NITROGEN 9.3 mg/dL (7-18); CALCIUM 8.4 mg/dL (8.5-10.1)
[2021-01-20 22:01] LABS: CREATININE 0.5 mg/dL (0.55-1.3)
[2021-01-20 22:02] LABS: URINE COLOR YELLOW
[2021-01-20 22:03] LABS: BILIRUBIN,TOTAL 0.1 mg/dL (0.2-1); TOT PROT 6.9 g/dl (6.4-8.2); URINE APPEARANCE CLEAR; URINE BILIRUBIN NEGATIVE (NEGATIVE); URINE GLUCOSE (UA) NEGATIVE (NEGATIVE); URINE KETONE 15 mg/dl (NEGATIVE); URINE LEUK ESTERASE TRACE (NEGATIVE); URINE NITRITE NEGATIVE (NEGATIVE); URINE PROTEIN TRACE (NEGATIVE)
== END 2021-01-20 23:17 | disposition home or self-care (01) ==
LOC: JER 19:03
PROC: 3E0333Z Introduction of Anti-inflammatory into Peripheral Vein, Percutaneous Approach (ICD-10-PCS; principal; 2021-01-20)
DX: O46.8X1 Other antepartum hemorrhage, first trimester (principal); O26.851 Spotting complicating pregnancy, first trimester; O23.41 Unspecified infection of urinary tract in pregnancy, first trimester; Z30.9 Encounter for contraceptive management, unspecified
CPT/HCPCS: 36415; 76801-TC; 80053; 81003; 84702; 85025; 86850; 86900; 86901; 99285-25; J0131

== ENCOUNTER 2021-08-12 11:18 | Emergency (ER) | payer OTHER ==
[2021-08-12 11:25] VITALS: BMI 30.7
[2021-08-12] MEDS ORDERED: ACETAMINOPHEN 500 MG TABLET (FP) PO ONE (12:09)
[2021-08-12 14:39] VITALS: BP 101/60; PULSE 66; TEMP 98.2
== END 2021-08-12 14:50 | disposition home or self-care (01) ==
LOC: JER 11:18
DX: G43.909 Migraine, unspecified, not intractable, without status migrainosus (principal)
CPT/HCPCS: 87651; 87804; 99283-25; C9803; U0003; U0005

== ENCOUNTER 2021-08-19 23:50 | Inpatient (IN) | payer OTHER ==
[2021-08-20] MEDS ORDERED: DEXTROSE 5%-LACTATED RINGERS 1,000 ML IV SCH
[2021-08-20] MEDS ORDERED: WITCH HAZEL 50% (TUCKS) 40 PAD/JAR PAD TP PRN (01:02)
[2021-08-20] MEDS ORDERED: BENZOCAINE 28 GM HEMORRHOIDAL OINTMENT TP PRN (01:02)
[2021-08-20] MEDS ORDERED: BENZOCAINE 20% 57 GM BOTTLE TP PRN (01:02)
[2021-08-20 01:11] LABS: CORD BASE EXCESS -4.3 mmol/L (0-2); CORD HCO3 18.7 mmHg (20-29); CORD PCO2 29.4 mmHg (30-78); CORD pH 7.422 (7.14-7.44)
[2021-08-20] MEDS ORDERED: OXYTOCIN 20 UNITS in 0.9% NS 20 UNIT/1,000 ML INFUS.BAG IV SCH (01:15)
[2021-08-20 01:16] LABS: CORD HCO3 19.2 mmHg (20-29); CORD PCO2 29.8 mmHg (30-78); CORD pH 7.426 (7.14-7.44)
[2021-08-20] MEDS ORDERED: IBUPROFEN 600 MG TABLET (FP) PO ONE ×3 (01:32→12:26)
[2021-08-20] MEDS: IBUPROFEN 600 MG TABLET (FP) PO PRN ×4 (01:35→18:06)
[2021-08-20] MEDS ORDERED: OXYTOCIN 20 UNITS in 0.9% NS 20 UNIT/1,000 ML INFUS.BAG IV ONE ×2 (02:36→08:16)
[2021-08-20] MEDS ORDERED: ACETAMINOPHEN 325 MG TABLET (FP) ONE (02:41)
[2021-08-20] MEDS: ACETAMINOPHEN 325 MG TABLET (FP) PO PRN (02:45)
[2021-08-20 03:13] LABS: BASO % 0.3 % (0-2.0); EOS % 0.4 % (0-4.5); HEMATOCRIT 21.8 % (32.4-45.2); MCH 19.7 pg (25.7-33.7); MCHC 30.4 g/dl (32.0-36.0); MEAN CELL VOLUME 64.7 fl (80-96); MEAN PLT VOLUME 10.3 fl (7.5-11.1); MONO % 4.8 % (3.8-10.2); NEUT % 79.5 % (42.8-82.8); PLATELET COUNT 135 10^3/uL (134-434); RBC 3.37 M/mm3 (3.60-5.2); RDW 18.6 % (11.6-15.6); WHITE BLOOD COUNT 9.2 K/mm3 (4.0-10.0)
[2021-08-20 03:15] LABS: HEMOGLOBIN 6.6 GM/dL (10.7-15.3)
[2021-08-20 03:23] LABS: INR 0.9 (0.83-1.09); PROTHROMBIN TIME (PATIENT) 10.3 SEC (9.7-13.0)
[2021-08-20 03:26] LABS: ACTIVATED PTT 26.5 SECONDS (25.2-36.5)
[2021-08-20 03:32] LABS: CALCIUM 7.6 mg/dL (8.5-10.1)
[2021-08-20 03:35] LABS: CREATININE 0.5 mg/dL (0.55-1.3)
[2021-08-20 03:43] VITALS: BMI 31.9
[2021-08-20 07:57] LABS: ANISOCYTOSIS 2+; MACROCYTOSIS 1+; PLATELET ESTIMATE NORMAL
[2021-08-20] MEDS ORDERED: FERROUS SO4 325 MG TABLET (FP) ONE ×2 (08:02→12:27)
[2021-08-20] MEDS: FERROUS SO4 325 MG TABLET (FP) PO SCH ×3 (08:05→18:06)
[2021-08-20 08:33] LABS: BASO % 0.8 % (0-2.0); EOS % 0.2 % (0-4.5); HEMATOCRIT 20.1 % (32.4-45.2); LYMPH % 21.5 % (8-40); MCHC 29.8 g/dl (32.0-36.0); MEAN CELL VOLUME 64.8 fl (80-96); MEAN PLT VOLUME 10.8 fl (7.5-11.1); MONO % 5.7 % (3.8-10.2); NEUT % 71.8 % (42.8-82.8); PLATELET COUNT 123 10^3/uL (134-434); RDW 19.2 % (11.6-15.6); WHITE BLOOD COUNT 8.9 K/mm3 (4.0-10.0)
[2021-08-20 08:37] LABS: MCH 19.3 pg (25.7-33.7)
[2021-08-20] MEDS ORDERED: IRON SUCROSE INJECTION 200 MG in SODIUM CHLORIDE 90 ML IVPB ONE (11:00)
[2021-08-21] MEDS: IBUPROFEN 600 MG TABLET (FP) PO PRN ×2 (06:20→13:12)
[2021-08-21 08:22] LABS: BASO % 0.5 % (0-2.0); EOS % 2.4 % (0-4.5); HEMATOCRIT 19.4 % (32.4-45.2); LYMPH % 27.8 % (8-40); MCHC 29.8 g/dl (32.0-36.0); MEAN CELL VOLUME 66.4 fl (80-96); MEAN PLT VOLUME 10.8 fl (7.5-11.1); MONO % 6.4 % (3.8-10.2); NEUT % 62.9 % (42.8-82.8); PLATELET COUNT 126 10^3/uL (134-434); RBC 2.93 M/mm3 (3.60-5.2); RDW 19.1 % (11.6-15.6); WHITE BLOOD COUNT 6.4 K/mm3 (4.0-10.0)
[2021-08-21 08:33] LABS: MCH 19.8 pg (25.7-33.7)
[2021-08-21 08:46] LABS: HEMOGLOBIN 5.8 GM/dL (10.7-15.3)
[2021-08-21] MEDS: ACETAMINOPHEN 325 MG TABLET (FP) PO PRN ×2 (08:53→17:28)
[2021-08-21] MEDS: FERROUS SO4 325 MG TABLET (FP) PO SCH ×3 (08:53→17:28)
[2021-08-21] MEDS ORDERED: FERRIC CARBOXYMALTOSE 750 MG in SODIUM CHLORIDE 250 ML IVPB ONE (10:00)
[2021-08-21] MEDS ORDERED: DIPHTH,PERTUSS(ACELL),TET 0.5 ML DISP.SYRIN IM ONE (10:00)
[2021-08-21] MEDS ORDERED: FLU VACC QS2021-22(6MOS UP)/PF 60 MCG/0.5 ML SYRINGE IM ONE (10:00)
[2021-08-21] MEDS ORDERED: SENNOSIDES/DOCUSATE COMBO (SENNA PLUS) TABLET (UD) PO PRN (22:00)
[2021-08-22] MEDS: ACETAMINOPHEN 325 MG TABLET (FP) PO PRN (00:05)
[2021-08-22] MEDS: FERROUS SO4 325 MG TABLET (FP) PO SCH ×2 (08:00→12:19)
[2021-08-22 09:12] VITALS: BP 121/75; PULSE 55; TEMP 98.5
[2021-08-22] MEDS: IBUPROFEN 600 MG TABLET (FP) PO PRN (13:06)
== END 2021-08-22 14:45 | disposition home or self-care (01) | DRG 560 ==
LOC: JLDR 23:50 → J3W 08-20 15:10
PROVIDERS: ADMIT Obstetrics & Gynecology; ATTEND Obstetrics & Gynecology
PROC: 10E0XZZ Delivery of Products of Conception, External Approach (ICD-10-PCS; principal; 2021-08-20)
PROC: 10907ZC Drainage of Amniotic Fluid, Therapeutic from Products of Conception, Via Natural or Artificial Opening (ICD-10-PCS; 2021-08-20)
DX: O99.02 Anemia complicating childbirth (principal); D50.9 Iron deficiency anemia, unspecified; Z37.0 Single live birth; Z3A.40 40 weeks gestation of pregnancy
CPT/HCPCS: 36415; 36600; 59409; 80048; 82803; 85025; 85610; 85730; 86780; 86850; 86900; 86901; 90686; 90715; C9803-CS; G0008; J1756; U0003; U0005

== ENCOUNTER 2021-08-24 05:33 | Inpatient (IN) | payer OTHER ==
[2021-08-24 05:43] VITALS: BMI 30.7
[2021-08-24] MEDS ORDERED: LACTATED RINGERS SOLUTION 1000 ML INFUS.BAG IV ONE (05:57)
[2021-08-24] MEDS ORDERED: ACETAMINOPHEN 1000 MG/100 ML BAG IVPB ONE ×3 (05:57→17:45)
[2021-08-24 06:43] LABS: BASO % 0.4 % (0-2.0); EOS % 1.5 % (0-4.5); HEMATOCRIT 25.4 % (32.4-45.2); HEMOGLOBIN 7.5 GM/dL (10.7-15.3); LYMPH % 16.4 % (8-40); MCH 20.3 pg (25.7-33.7); MCHC 29.7 g/dl (32.0-36.0); MEAN CELL VOLUME 68.3 fl (80-96); MEAN PLT VOLUME 9.7 fl (7.5-11.1); NEUT % 76.7 % (42.8-82.8); PLATELET COUNT 198 10^3/uL (134-434); RBC 3.72 M/mm3 (3.60-5.2); RDW 19.2 % (11.6-15.6); WHITE BLOOD COUNT 6.7 K/mm3 (4.0-10.0)
[2021-08-24 06:53] LABS: EPI CELLS 8 /uL (0-25.1); HYALINE CASTS 11 /uL (0-3.1); INR 0.9 (0.83-1.09); PH,URINE 5.5 (5.0-8.0); PROTHROMBIN TIME (PATIENT) 10.3 SEC (9.7-13.0); URINE APPEARANCE CLEAR; URINE BACTERIA 136 /uL (0-1359); URINE BILIRUBIN NEGATIVE (NEGATIVE); URINE COLOR YELLOW; URINE GLUCOSE (UA) NEGATIVE (NEGATIVE); URINE KETONE NEGATIVE (NEGATIVE); URINE LEUK ESTERASE 3+ (NEGATIVE); URINE NITRITE NEGATIVE (NEGATIVE); URINE PROTEIN NEGATIVE (NEGATIVE); URINE RBC 355 /uL (0-23.9); URINE UROBILINOGEN 0.2 mg/dL (0.2-1.0); URINE WBC 417 /uL (0-25.8)
[2021-08-24 06:55] LABS: ACTIVATED PTT 27.3 SECONDS (25.2-36.5)
[2021-08-24 06:56] LABS: CALCIUM 7.9 mg/dL (8.5-10.1)
[2021-08-24] MEDS ORDERED: morphine CARPU-JECT 4 MG/1 ML DISP.SYRIN IVPUSH ONE (06:56)
[2021-08-24 06:57] LABS: ALBUMIN 2.8 g/dl (3.4-5.0); BLOOD UREA NITROGEN 7.6 mg/dL (7-18)
[2021-08-24] MEDS ORDERED: ONDANSETRON 4 MG/2 ML VIAL IVPUSH ONE (06:59)
[2021-08-24 07:00] LABS: CREATININE 0.6 mg/dL (0.55-1.3)
[2021-08-24 07:01] LABS: BILIRUBIN,TOTAL 0.2 mg/dL (0.2-1); TOT PROT 6.8 g/dl (6.4-8.2)
[2021-08-24] MEDS ORDERED: ONDANSETRON 4 MG/2 ML VIAL ONE (07:10)
[2021-08-24] MEDS ORDERED: morphine SULFATE 4 MG/ML VIAL ONE (07:10)
[2021-08-24] MEDS ORDERED: BUPIVACAINE HCL/PF 0.5% (5MG/ML) 10 ML VIAL ONE (15:27)
[2021-08-24] MEDS ORDERED: CEFTRIAXONE 1 GM in DEXTROSE 5%-WATER - 50 ML IVPB ONE ×2 (15:30→17:37)
[2021-08-24] MEDS ORDERED: LIDOCAINE HCL/PF 2% SDV 5ML VIAL ONE (15:57)
[2021-08-24] MEDS ORDERED: ROCURONIUM BROMIDE 50 MG/5 ML SYRINGE ONE (15:58)
[2021-08-24] MEDS ORDERED: MIDAZOLAM HCL 2 MG/2 ML SINGLE DOSE VIAL ONE (15:58)
[2021-08-24] MEDS ORDERED: PROPOFOL 20 ML ONE (15:58)
[2021-08-24 16:30] LABS: ANISOCYTOSIS 2+; MACROCYTOSIS 0
[2021-08-24] MEDS ORDERED: SEVOFLURANE 250 ML BTL ONE (17:01)
[2021-08-24] MEDS ORDERED: DESFLURANE GAS 240 ML BOTTLE IH ONE (17:01)
[2021-08-24] MEDS ORDERED: oxyCODONE HCL 5 MG TABLET PO PRN (17:20)
[2021-08-24] MEDS ORDERED: ONDANSETRON 4 MG/2 ML VIAL IVPUSH PRN ×2 (17:20→17:28)
[2021-08-24] MEDS ORDERED: PROMETHAZINE HCL 25 MG/1 ML VIAL IVPUSH PRN ×2 (17:20→17:28)
[2021-08-24] MEDS ORDERED: IRON SUCROSE INJECTION 300 MG in SODIUM CHLORIDE 235 ML IVPB ONE ×2 (17:20→17:38)
[2021-08-24] MEDS ORDERED: BUPIVACAINE HCL/PF 0.5% (5 MG/ML) 30 ML VIAL IJ ONE (17:22)
[2021-08-24] MEDS ORDERED: LACTATED RINGERS SOLUTION 1,000 ML/1,000 ML INFUS.BAG IV SCH (17:45)
[2021-08-24] MEDS ORDERED: cefTRIAXone SODIUM 1 GM VIAL ONE (17:58)
[2021-08-24] MEDS ORDERED: PIPERACILLIN/TAZOB 3.375 GM 3.375 GM in DEXTROSE 5%-WATER - 50 ML IVPB SCH (18:00)
[2021-08-24] MEDS ORDERED: cefTRIAXone SODIUM 1 GM VIAL IVPB ONE (18:00)
[2021-08-24] MEDS: oxyCODONE HCL 5 MG TABLET PO PRN (18:56)
[2021-08-24] MEDS: FAMOTIDINE 20 MG/50 ML IVPB 20 MG/50 ML MG IVPB SCH (21:35)
[2021-08-24] MEDS ORDERED: FAMOTIDINE 20 MG/50 ML IVPB 20 MG/50 ML MG IVPB SCH (22:00)
[2021-08-25] MEDS: ACETAMINOPHEN 500 MG TABLET (FP) PO SCH ×3 (00:15→12:11)
[2021-08-25] MEDS: oxyCODONE HCL 5 MG TABLET PO PRN ×3 (01:51→15:53)
[2021-08-25 05:50] VITALS: PULSE 53
[2021-08-25] MEDS ORDERED: FERROUS SO4 325 MG TABLET (FP) PO SCH (08:00)
[2021-08-25] MEDS: FAMOTIDINE 20 MG/50 ML IVPB 20 MG/50 ML MG IVPB SCH (09:55)
[2021-08-25] MEDS ORDERED: DOCUSATE SODIUM 100 MG CAPSULE (FP) PO SCH (10:00)
[2021-08-25 10:52] LABS: HEMATOCRIT 26.5 % (32.4-45.2); HEMOGLOBIN 7.9 GM/dL (10.7-15.3); MCH 20.6 pg (25.7-33.7); MCHC 29.9 g/dl (32.0-36.0); MEAN CELL VOLUME 68.7 fl (80-96); PLATELET COUNT 199 10^3/uL (134-434); RBC 3.86 M/mm3 (3.60-5.2); RDW 20.2 % (11.6-15.6); WHITE BLOOD COUNT 5.9 K/mm3 (4.0-10.0)
[2021-08-25 11:08] LABS: ALBUMIN 2.5 g/dl (3.4-5.0); BLOOD UREA NITROGEN 5.9 mg/dL (7-18); CALCIUM 8.3 mg/dL (8.5-10.1)
[2021-08-25 11:11] LABS: CREATININE 0.5 mg/dL (0.55-1.3)
[2021-08-25 11:13] LABS: BILIRUBIN,TOTAL 0.2 mg/dL (0.2-1)
[2021-08-25 14:15] VITALS: BP 103/61; TEMP 98.4
== END 2021-08-25 17:56 | disposition home or self-care (01) | DRG 952 ==
LOC: JER 05:33 → JERBED 12:51 → J6S 15:55
PROVIDERS: ADMIT Family Medicine; ATTEND Family Medicine
PROC: 30233N1 Transfusion of Nonautologous Red Blood Cells into Peripheral Vein, Percutaneous Approach (ICD-10-PCS; 2021-08-24)
PROC: 0WQF0ZZ Repair Abdominal Wall, Open Approach (ICD-10-PCS; principal; 2021-08-24 14:00)
DX: O90.89 Other complications of the puerperium, not elsewhere classified (principal); K43.6 Other and unspecified ventral hernia with obstruction, without gangrene; D50.9 Iron deficiency anemia, unspecified; R31.9 Hematuria, unspecified; R10.13 Epigastric pain; Z98.84 Bariatric surgery status
CPT/HCPCS: 36415; 36430; 74177-TC; 76856-TC; 80053; 81003; 82607; 82728; 82746; 83540; 83550; 83605; 83615; 83690; 84439; 84443; 84484; 85025; 85027; 85045; 85610; 85730; 86850; 86900; 86901; 86922; 87086; 88302-TC; 93005; 93010; 94760; 99285-25; C9803; J1756; P9058; Q9967; U0003; U0005